=== PATIENT | female | born 1950 | race Caucasian/White ===

== ENCOUNTER → 2017-11-02 07:59 | Outpatient (CLI) | payer OTHER, SELFPAY ==
--- NOTE | 2017-11-02 08:02 | BI_ITS ---
MAMMOGRAPHY - BILATERAL SCREENING REASON FOR EXAM: Female, 67 years old. Routine annual screening examination. PERTINENT HISTORY: Mother with breast cancer. TECHNIQUE: Digital bilateral breast enrique (3D mammographic acquisition) in the CC and MLO projections. 2-D mediolateral oblique (MLO) and craniocaudad (CC) views of both breasts were obtained. CAD: Full Field Digital Mammography with Computer Added Detection was performed. COMPARISON: Comparison is made with prior study of October 18, 2016 and October 23, 2015. FINDINGS: Breast Composition: There are scattered areas of fibroglandular density. There are no dominant masses or suspicious calcifications. No other significant abnormalities are identified. There has been no significant change since the prior study. BI/SCREENING MAMM (CAD), BILAT IMPRESSION: Stable bilateral screening mammogram. Yearly follow-up mammogram recommended. (A) ASSESSMENT CATEGORY: BIRADS Category 1: Negative. A letter regarding these results will be sent to the patient by the facility within 30 days. Approximately 10% of breast cancers are not detected by mammography. A normal mammogram should not delay biopsy of a clinically suspicious abnormality. [id number] Electronically Signed: Juvencio Childs MD at 9:13 EDT Tel [phone], Service support ,
== END ==
PROVIDERS: Family Provider Family Medicine; PCP Family Medicine; Visit Provider Obstetrics & Gynecology
DX: Z12.31 Encounter for screening mammogram for malignant neoplasm of breast (principal)
CPT/HCPCS: 77063; 77067

== ENCOUNTER → 2018-04-11 12:20 | Outpatient (CLI) | payer OTHER, SELFPAY ==
--- NOTE | 2018-04-11 12:23 | RAD_ITS ---
STUDY: X-RAY CHEST REASON FOR EXAM: Female, 67 years old. 2 week history of cough. TECHNIQUE: PA and lateral views of the chest. COMPARISON: None. FINDINGS: Focal infiltrate in the anterior segment of the left lower lobe. Follow-up is recommended. Scattered calcified granulomas. There is no demonstrated pleural abnormality. Normal size heart. Normal mediastinum and raina. Normal visualized pulmonary arteries. Normal visualized aortic arch and descending thoracic aorta. There is demineralization of the osseous structures. Normal visualized ribs, clavicles, and shoulders. There is no demonstrated abnormality of the visualized soft tissue structures of the upper abdomen. RAD/Chest PA and Lateral IMPRESSION: Focal infiltrate is seen in the anterior segment of the left lower lobe. Electronically Signed: Juvencio Childs MD at 12:37 EDT Tel [phone], Service support ,
== END ==
PROVIDERS: Visit Provider Physician Assistant Surgical
DX: R09.89 Other specified symptoms and signs involving the circulatory and respiratory systems (principal)
CPT/HCPCS: 71046

== ENCOUNTER → 2018-06-14 07:46 | Outpatient (CLI) | payer OTHER, SELFPAY ==
[2018-06-14 09:40] LABS: Absolute Lymphocyte Count 1.75 X10^3/ul (0.83-4.51); Absolute Neutrophil Count 4.5 X10^3/uL (2.0-7.7); Basophil# 0.02 X10^3/uL; Basophil% 0.3 % (0-1); Eosinophil# 0.18 X10^3/uL; Eosinophils% 2.6 % (0-5); Hemoglobin 14.1 g/dl (12.0-15.0); Lymphocyte # 1.75 X10^3/ul (4.0); Lymphocyte % 25.2 % (19-41); Mean Corp Hgb Conc 32.8 g/gl (32-36); Mean Corpuscular Hgb 29.7 pg (27.0-32.0); Mean Corpuscular Volume 90.7 fL (81-99); Mean Platelet Vol. 8.5 fl (6.2-12.0); Monocyte# 0.51 X10^3/uL; Monocyte% 7.3 % (0-10); Neutrophil # 4.47 X10^3/uL (2.7-7.7); Neutrophil % 64.5 % (47-70); Platelet Count 362 K/mm3 (150-450); RBC Distribution Width CV 14.6 % (11.6-14.6); RBC Distribution Width SD 47.9 fl (35.1-43.9); Red Blood Count 4.74 M/mm3 (4.2-5.4); White Blood Count 6.9 K/mm3 (4.4-11.0)
[2018-06-14 09:43] LABS: POSITIVE COUNT NO; POSITIVE DIFFERENTIAL NO; POSITIVE MORPHOLOGY NO
[2018-06-14 10:22] LABS: ALB/GLOB Ratio 0.9 RATIO (0.9-2.4); AST(SGOT) 15 U/L (15-37); Alanine Aminotransfer ALT/SGPT 19 U/L (13-56); Albumin, Serum 3.5 g/dL (3.2-5.0); Alkaline Phosphatase 85 U/L (45-117); Anion Gap 8 (5-15); BUN 17 mg/dL (7-18); BUN/Creat Ratio 20.1 RATIO (10-20); Chloride 104 mmol/L (98-107); Cholesterol 242 mg/dL (200); Creatinine, Serum 0.84 mg/dL (0.55-1.02); EST Glomerular Filtration Rate 72 mL/min (>60); Est Glom Filt Rate - Afr Amer 87 mL/min (>60); Globulin 4.1 g/dL (2.2-4.2); Glucose 84 mg/dL (74-106); High Density Lipoprotein 57 mg/dL; Potassium 4.1 mmol/L (3.5-5.1); Protein, Total 7.6 g/dL (6.4-8.2); Sodium Level 141 mmol/L (136-145); Triglycerides 124 mg/dL; Very Low Density Lipoprotein 25 mg/dL (5-40)
== END ==
PROVIDERS: Family Provider Internal Medicine; PCP Internal Medicine; Referring Provider Internal Medicine; Visit Provider Internal Medicine
DX: Z00.00 Encounter for general adult medical examination without abnormal findings (principal)
CPT/HCPCS: 36415; 80053; 80061; 85025

== ENCOUNTER → 2018-11-16 07:38 | Outpatient (CLI) | payer OTHER, SELFPAY ==
[2018-06-30 08:04] VITALS: BMI 23.7
--- NOTE | 2018-11-16 07:41 | BI_ITS ---
MAMMOGRAPHY - BILATERAL SCREENING REASON FOR EXAM: Female, 68 years old. Routine annual screening examination. PERTINENT HISTORY: Mother with breast cancer. TECHNIQUE: Digital bilateral breast enrique (3D mammographic acquisition) in the CC and MLO projections. 2-D mediolateral oblique (MLO) and craniocaudad (CC) views of both breasts were obtained. CAD: Full Field Digital Mammography with Computer Added Detection was performed. COMPARISON: Comparison is made with prior study dated November 02, 2017 and October 26, 2016. FINDINGS: Breast Composition: There are scattered areas of fibroglandular density. There are no dominant masses or suspicious calcifications. No other significant abnormalities are identified. There has been no significant change since the prior study. BI/SCREENING MAMM (CAD), BILAT IMPRESSION: Stable bilateral screening mammogram. Yearly follow-up mammogram recommended. (A) ASSESSMENT CATEGORY: BIRADS Category 1: Negative. A letter regarding these results will be sent to the patient by the facility within 30 days. Approximately 10% of breast cancers are not detected by mammography. A normal mammogram should not delay biopsy of a clinically suspicious abnormality. [id number] Electronically Signed: Juvencio Childs, at 9:13 EDT , Service support ,
== END ==
PROVIDERS: Family Provider Internal Medicine; PCP Internal Medicine; Referring Provider Obstetrics & Gynecology; Visit Provider Obstetrics & Gynecology
DX: Z12.31 Encounter for screening mammogram for malignant neoplasm of breast (principal)
CPT/HCPCS: 77063; 77067

== ENCOUNTER → 2019-07-20 14:08 | Outpatient (CLI) | payer OTHER, SELFPAY ==
[2019-07-20 08:35] VITALS: BMI 23.7
[2019-07-20 14:21] LABS: Mucous, Urine 0 SEEN /hpf (<or=2+)
[2019-07-20 14:51] LABS: Color, Urine Yellow (Yellow); Glucose, Dipstick Normal (Normal); Ketone-Dipstick Negative (Negative); Leukocyte Esterase-Dipstick 500 /ul (Negative); Nitrite-Dipstick Negative (Negative); Occult Blood-Urine 250 /ul (Negative); Protein-Dipstick 100 mg/dl (Negative); Urine Bilirubin Dipstick Negative (Negative); Urine Clarity Cloudy (Clear); Urine Urobilinogen Normal (Normal)
[2019-07-20 15:03] LABS: Red Blood Cells-Urine > 100 SEEN /hpf (0-5); White Blood Cells >100 SEEN /hpf (0-5)
[2019-07-20 15:04] LABS: Bacteria 1+ /hpf (None Seen); Squamous Epithelial Cells - UA 5-10 SEEN /hpf (5-10)
== END ==
PROVIDERS: Family Provider Internal Medicine; PCP Internal Medicine; Referring Provider Physician Assistant Surgical; Visit Provider Physician Assistant Surgical
DX: R30.0 Dysuria (principal)
CPT/HCPCS: 81001; 87086; 87088; 87186

== ENCOUNTER → 2020-01-01 07:39 | Outpatient (CLI) | payer OTHER, SELFPAY ==
[2019-09-10 14:46] VITALS: BMI 23.7
--- NOTE | 2020-01-01 07:41 | BI_ITS ---
MAMMOGRAPHY - BILATERAL SCREENING REASON FOR EXAM: Female, 69 years old. Routine annual screening examination. PERTINENT HISTORY: Mother with breast cancer. TECHNIQUE: Digital bilateral breast joon (3D mammographic acquisition) in the CC and MLO projections. 2-D mediolateral oblique (MLO) and craniocaudad (CC) views of both breasts were obtained. CAD: Full Field Digital Mammography with Computer Added Detection was performed. COMPARISON: Comparison is made with prior examination dated November 16, 2018 and November 02, 2017. FINDINGS: Breast Composition: The breasts are almost entirely fatty. There are no dominant masses or suspicious calcifications. No other significant abnormalities are identified. There has been no significant change since the prior study. BI/SCREEN MAMM (CAD) W/JOON BILAT IMPRESSION: Stable bilateral screening mammogram. Yearly follow-up mammogram recommended. (A) ASSESSMENT CATEGORY: BIRADS Category 1: Negative. A letter regarding these results will be sent to the patient by the facility within 30 days. Approximately 10% of breast cancers are not detected by mammography. A normal mammogram should not delay biopsy of a clinically suspicious abnormality. [id number] Electronically Signed: Juvencio Childs, at 12:10 EDT , Service support ,
== END ==
PROVIDERS: PCP Internal Medicine; Referring Provider Obstetrics & Gynecology; Visit Provider Obstetrics & Gynecology
DX: Z12.31 Encounter for screening mammogram for malignant neoplasm of breast (principal); Z80.3 Family history of malignant neoplasm of breast
CPT/HCPCS: 77063; 77067

== ENCOUNTER → 2020-05-21 14:28 | Outpatient (CLI) | payer OTHER, SELFPAY ==
[2019-09-10 14:46] VITALS: BMI 23.7
--- NOTE | 2020-05-21 14:31 | CT_ITS ---
STUDY: CT RIGHT HIP REASON FOR EXAM: Female, 69 years old. OSTEOARTHRITIS RIGHT HIP-RUTHIE PROTOCOL RADIATION DOSAGE (If Supplied By Facility): CTDIvol = ( 13.52 ) mGy, DLP = ( 805.55 ) mGycm TECHNIQUE: Transaxial imaging of the pelvis and right hip with localizer images at the knee utilizing joint replacement protocol. Individualized dose optimization techniques were used for this CT. COMPARISON: None. FINDINGS: RIGHT HIP There is severe loss of the articular joint space of the right hip joint, with full thickness loss of the hyaline cartilage. There is lateral osteoarthritic spurring of the acetabular rim with a cortical erosion of the weight bearing articular surface of the right acetabulum. There is spurring of the right femoral head. Normal right femoral neck and intertrochanteric region. LEFT HIP There is mild articular narrowing of the left hip joint, with less than 50% loss of the hyaline cartilage. Normal left acetabulum. Normal left femoral neck and intertrochanteric region. OSSEOUS PELVIS Degenerative changes of visualized lower lumbar spine. Normal bilateral superior and inferior pubic rami. Normal pubic symphysis. Normal bilateral ischial tuberosity. There is mild sacroiliac spurring. Normal visualized soft tissue structures of the pelvis. Normal uterus. There is 1.9 cm left adnexal cyst. CT/Extremity Lower without Contra IMPRESSION: Degenerative change. Electronically Signed: Jose Alberto Mukherjee MD at 23:21 EDT , Service support ,
== END ==
PROVIDERS: PCP Internal Medicine; Referring Provider Specialist; Visit Provider Specialist
DX: M16.11 Unilateral primary osteoarthritis, right hip (principal)
CPT/HCPCS: 73700

== ENCOUNTER 2020-06-11 07:15 | Observation (INO) | payer OTHER, SELFPAY ==
[2019-09-10 14:46] VITALS: BMI 23.7
[2020-05-23 13:32] VITALS: BMI 24.0
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
[2020-06-04 11:19] LABS: Absolute Lymphocyte Count 1.88 X10^3/uL (0.83-4.51); Absolute Neutrophil Count 4.7 X10^3/uL (2.0-7.7); Basophil# 0.02 X10^3/uL; Basophil% 0.3 % (0-1); Eosinophil# 0.11 X10^3/uL; Eosinophils% 1.5 % (0-5); Hematocrit 45.7 % (37-47); Hemoglobin 14.6 g/dL (12.0-15.0); Lymphocyte # 1.88 X10^3/ul (4.0); Lymphocyte % 25.6 % (19-41); Mean Corp Hgb Conc 31.9 g/dL (32-36); Mean Corpuscular Hgb 29.6 pg (27.0-32.0); Mean Corpuscular Volume 92.5 fL (81-99); Mean Platelet Vol. 8.8 fl (6.2-12.0); Monocyte# 0.66 X10^3/uL; NRBC Flagged by Analyzer 0 % (0-5); Neutrophil # 4.66 X10^3/uL (2.7-7.7); Neutrophil % 63.3 % (47-70); Platelet Count 311 K/mm3 (150-450); RBC Distribution Width CV 13.8 % (11.6-14.6); RBC Distribution Width SD 47.1 fl (35.1-43.9); Red Blood Count 4.94 M/mm3 (4.2-5.4); White Blood Count 7.4 K/mm3 (4.4-11.0)
[2020-06-04 11:48] LABS: Anion Gap 5 (5-15); BUN 18 mg/dL (7-18); BUN/Creat Ratio 21.3 RATIO (10-20); Calcium,Total 9.1 mg/dL (8.5-10.1); Chloride 105 mmol/L (98-107); Creatinine, Serum 0.85 mg/dL (0.55-1.02); EST Glomerular Filtration Rate 71 mL/min (>60); Est Glom Filt Rate - Afr Amer 86 mL/min (>60); Glucose 79 mg/dL (74-106); Potassium 4.2 mmol/L (3.5-5.1); Sodium Level 138 mmol/L (136-145)
[2020-06-04 11:58] LABS: Magnesium 2.2 mg/dL (1.6-2.6)
[2020-06-11] VITALS (12 sets, daily range): BP systolic 95–117; BP diastolic 38–82; PULSE 58–79; RESP 16–18; TEMP 36.1–37.2; O2SAT 94–100; BMI 24.0; BMI 23.8
[2020-06-11 07:00] LABS: Bedside Glucose 64 mg/dL (70-110)
[2020-06-11] MEDS: Acetaminophen 500 MG Tablet 1000 MG PO ×3 (07:12→20:49)
[2020-06-11] MEDS: Gabapentin 600 MG Tablet PO (07:12)
[2020-06-11] MEDS: Lactated Ringers 1,000 ML 100 ML IV (07:16)
[2020-06-11] MEDS: Scopolamine 1mg/72hr Patch 1 PATCH TRANSDERM. (07:16)
[2020-06-11] MEDS: Cefazolin 2 GM in 0.9% Normal Saline 100 ML IV (07:52)
[2020-06-11] MEDS: dexAMETHasone 10 MG/ML Vial IV (08:21)
--- NOTE | 2020-06-11 09:09 | RAD_ITS ---
STUDY: X-RAY - PELVIS AND RIGHT HIP REASON FOR EXAM: Female, 69 years old. Anterior hip in OR TECHNIQUE: 1 views of the pelvis and hip. COMPARISON: None. FINDINGS: Intraoperative imaging provided for right total hip replacement. RAD/Hip 1 view with Pelvis IMPRESSION: Intraoperative imaging provided for right total hip replacement. Electronically Signed: Juvencio Childs, at 13:59 EST , Service support ,
--- NOTE | 2020-06-11 10:00 | OP.PCM_ITS ---
Report of Operation Date of Procedure: 06/11/20 Pre-Operative Diagnosis: Right hip primary osteoarthritis Post-Operative Diagnosis: Right hip primary osteoarthritis Surgery/Procedure Performed:: Minimally invasive robotic assisted direct anterior shoulder replacement Description of Surgical Findings:: Stable hip with equal leg lengths senior web developer: Jackie Cates Type of Anesthesia:: Spinal Anesthesiologist: Rashard Carrion Special Medications: 2 g Ancef, 1 g TXA at incision, 1 g TXA closure, 10 mg Decadron, joint cocktail (5 mg Duramorph, 30 mL of 0.5% Ropivicaine, 1000 units of epinephrine, 30 mg of Toradol) Specimen's removed: Bony cuts Estimated Blood Loss (mL): 250 Fluids Replaced: 1000 mL crystalloid Description of Procedure: Components used: 1. Accolade 2 Kirwin femoral stem size 3 127? 2. Lanre trident 2 acetabular shell size 50 mm, with 2 screws 3. Lanre X3 polyethylene MDM 4. Lanre Biolox delta 22.2mm, +3mm femoral head 5. MDM liner alpha code D Brief history operative indications: 69 yo f who failed conservative measures for their hip osteoarthritis. X-rays were consistent with osteoarthritis including joint space narrowing, osteophyte formation and subchondral cysts. Total hip replacement was discussed with the patient with risks and benefits including but not limited to blood loss, DVTs, PEs, neurovascular damage, dislocation, general risks of anesthesia including loss of life. Patient demonstrated an understanding medical clearance is obtained the patient was consented for surgery. Procedure: On the date of procedure the patient's R hip was marked in the preoperative area. Patient was then taken back to the operating room where anesthesia assumed control of the C-spine and airway and administered anesthetic. Patient was transferred to the operating table and placed in the supine position. The hips were placed at the break of the bed and a sacral bump was placed. The R lower extremity was then prepped out in a sterile fashion using chlorhexidine while the surgeon scrubbed. The PA was vital in the positioning of the patient. Upon reentering the room the R lower extremity was draped in the standard orthopedic fashion and the incision was marked. A timeout was called and akosua woo agreed upon the side, the site, the procedure be performed, antibody given, and patient's identity. 2 pins were placed in the contralateral iliac crest and the array was attached. At this time incision was made through skin, subcutaneous tissue, and fat down to fascia. The fascia was then incised and the TFL was retracted laterally. A retractor was placed on the lateral border of the femoral neck. Attention was directed to the inferior portion of the approach and all crossing vessels were identified and appropriately coagulated. A retractor was then placed on the medial portion of the femoral neck. The anterior capsule was then cleared of all soft tissue and then H shaped capsulotomy was made. The retractors were then placed inside the capsule. Checkpoint was placed in the femur and the femur was registered. The femoral neck was identified and a cleanup cut was made. At this time a power corkscrew was used to remove the femoral head. Attention was then turned toward the acetabulum where the soft tissues were appropriately retracted and the acetabulum was registered using the [email or web address] system. The acetabulum then was sequentially reamed to 50 mm. A 50 mm cup was then selected and impacted into place. Acetabular liner was impacted into place and locking mechanism was verified. The position of the acetabular cup was then verified under live fluoroscopy. Attention was then turned to the femur. Soft tissue releases on the medial and lateral femoral neck were appropriately done, the leg was externally rotated and lateralized. A Lala retractor was placed medially and proximally to the greater trochanter this allowed appropriate visualization and exposure of the femoral canal. Rongeour was then used to remove excess lateral bone. A canal finder and entry broach were used to open the proximal canal. Once we verified we were down the femoral canal we subsequently broached up to a size 3 femur. The appropriate neck was placed in the previously selected head was trialed with a 0 mm neck. Traction was pulled and the hip was reduced with internal rotation. Once it was appropriately reduced and stability was checked. There was minimal shuck, equal leg lengths and appropriate stability with hyperextension and external rotation as well as with 90? however patient had posterior instability with flexion and internal rotation. Fluoroscopy was then also used to verify the position of the components and leg lengths using the contralateral side for comparison. Leg lengths appear appropriate. At this time we felt we needed to switch to a MDM liner for greater stability. In removing the acetabular liner the shell was also removed. Based on the bone quality and the loose fit of the acetabular shell we elected to use a multihole shell. A multihole shell was open and impacted into place. Version was corrected 2 screws were placed. MDM liner was placed. We then trialed with the 127 degree neck a +3 head and the MDM. This gave us equal leg lengths with a stable hip in all directions. The trial components were then dislocated the proximal femur was again exposed and the components were removed from the wound. The final components were verified and opened. The wound was copiously irrigated out with normal saline. The acetabulum was checked for any residual debris. The final components were placed and impacted. Traction and internal rotation were again used to reduce the hip. After adequate reduction the hip remained stable with appropriate leg lengths. The final components were once again checked with live fluoroscopy and were found to be satisfactory. The wound was then copiously irrigated with normal saline once more, and hemostasis was obtained. Closure was then done using #1 Vicryl runner to close the fascia. A 2-0 vicryl interuppted sutures were used to close the subcutaneous skin. A 3-0 Monocryl and Steri-Strips were used for final skin closure. A Silverlon dressing was placed. Patient was awakened by anesthesia and transferred [facility]. Patient was then transferred to the PACU for recovery. Postoperative plan: Patient will get 24 hours postop antibiotics. Patient will get in-house phy sical therapy and will be weight-bear as tolerated. Patient will follow up in office in 2 weeks for a wound check and x-rays. 10 mg Xarelto daily for DVT prophylaxis due to previous VTE. - Complications No intraoperative complications - Admit VTE Documentation VTE Present on Admission: No VTE Mechan Device Prophylaxis: SCD's, Thigh High JASON Hose VTE Pharm Prophylaxis ordered?: Yes
[2020-06-11] MEDS: Lactated Ringers 1,000 ML 999 ML IV (10:38)
--- NOTE | 2020-06-11 10:50 | RAD_ITS ---
STUDY: X-RAY - PELVIS AND RIGHT HIP REASON FOR EXAM: Female, 69 years old. POST OP TECHNIQUE: 2 views of the pelvis and hip. COMPARISON: CT 05/21/2020 FINDINGS: There is a non-specific bowel gas pattern. Normal visualized soft tissue structures. Normal bilateral iliac wings, sacroiliac joints and visualized sacrum. Normal bilateral superior and inferior pubic rami. Normal pubic symphysis. Normal bilateral ischial tuberosities. Interval recent total hip arthroplasty with subcutaneous emphysema... RAD/Hip Min 2 Views (Portable) IMPRESSION: Interval recent right total hip arthroplasty. Electronically Signed: Elkin Baldwin MD at 11:12 EST Tel , Service support ,
[2020-06-11] MEDS: Lactated Ringers 1,000 ML 125 ML IV (11:31)
[2020-06-11] MEDS: oxyCODONE 5 MG Tablet PO (12:45)
[2020-06-11] MEDS: Senna/Docusate Sodium 1 Tablet 2 TABLET PO ×2 (12:46→20:49)
[2020-06-11] MEDS: Famotidine 20 MG Tablet PO (12:47)
[2020-06-11] MEDS: Ensure Surgery 237 ML LIQUID PO ×2 (12:49→17:11)
[2020-06-11] MEDS: Cefazolin 1 GM/50 ML BAG IV (17:12)
[2020-06-12] MEDS: Cefazolin 1 GM/50 ML BAG IV (00:46)
[2020-06-12 00:50] VITALS: BP 94/47; PULSE 66; RESP 18; TEMP 36.6; O2SAT 98
[2020-06-12] MEDS: oxyCODONE 5 MG Tablet PO (01:48)
[2020-06-12] MEDS: Acetaminophen 500 MG Tablet 1000 MG PO ×2 (05:00→13:01)
[2020-06-12] MEDS: Rivaroxaban 10 MG Tablet PO (05:00)
[2020-06-12 05:04] VITALS: BP 96/50; PULSE 68; RESP 16; TEMP 37.3; O2SAT 95
[2020-06-12 07:32] LABS: Hematocrit 31.8 % (37-47); Hemoglobin 10.3 g/dL (12.0-15.0); Mean Corp Hgb Conc 32.4 g/dL (32-36); Mean Corpuscular Hgb 29.9 pg (27.0-32.0); Mean Corpuscular Volume 92.2 fL (81-99); Platelet Count 211 K/mm3 (150-450); RBC Distribution Width CV 14.2 % (11.6-14.6); RBC Distribution Width SD 47.8 fl (35.1-43.9); Red Blood Count 3.45 M/mm3 (4.2-5.4)
[2020-06-12 07:54] LABS: Anion Gap 4 (5-15); BUN 17 mg/dL (7-18); BUN/Creat Ratio 21.5 RATIO (10-20); Calcium,Total 8.6 mg/dL (8.5-10.1); Chloride 109 mmol/L (98-107); Creatinine, Serum 0.79 mg/dL (0.55-1.02); EST Glomerular Filtration Rate 77 mL/min (>60); Est Glom Filt Rate - Afr Amer 93 mL/min (>60); Estimated Creatinine Clearance 47.14 ml/min; Glucose 110 mg/dL (74-106); Potassium 4.6 mmol/L (3.5-5.1); Sodium Level 142 mmol/L (136-145)
[2020-06-12 08:17] VITALS: BP 102/48; PULSE 66; RESP 16; TEMP 37; O2SAT 98
[2020-06-12] MEDS: Famotidine 20 MG Tablet PO (08:20)
[2020-06-12] MEDS: Senna/Docusate Sodium 1 Tablet 2 TABLET PO (08:21)
[2020-06-12] MEDS: Ensure Surgery 237 ML LIQUID PO ×2 (08:21→11:23)
[2020-06-12] MEDS: Calcium Carbonate 500 MG Tablet PO (08:21)
--- NOTE | 2020-06-12 10:01 | PN.ORTHO_ITS ---
Subjective: The patient was sitting in bedside chair upon examination. Patient denies any chest pain, shortness of breath, dizziness, lightheadedness, nausea or vomiting, or calf pain. Pain is controlled on medications. No adverse overnight events. Patient had some lower blood pressure readings overnight but she has tolerated therapy and has had no episodes of dizziness or lightheadedness. No underlying hypertension. Patient is doing very well and tolerated therapy well. She does wish to go home today. Objective: Vital signs stable and afebrile. Patient has had couple readings of low blood pressure. We will continue to monitor today Patient is able to plantarflex and dorsiflex actively. Sensation is intact to light touch to saphenous, sural, superficial and deep peroneal, and tibial distribution. Dressing is clean dry and intact. Negative Homans bilaterally, negative signs and symptoms of DVT. - Physical Exam Vitals/I&O's: Vital Signs Temp Pulse Resp BP Pulse Ox 98.6 F 66 16 102/48 L 98 06/12/20 08:17 06/12/20 08:17 06/12/20 08:17 06/12/20 08:17 06/12/20 08:17 Oxygen Flow Rate (L/min) 5 Oxygen Delivery Method Room Air Weight: 63.049 kg Body Mass Index (BMI) 23.8 Intake and Output for Last 24 Hours 06/10/20 06/11/20 06/12/20 23:59 23:59 23:59 Intake Total 4484.00 / 4484.00 50 / 50 Balance 4484.00 / 4484.00 50 / 50 General: Alert, Oriented x3, Cooperative, No apparent distress Microbiology Past 72 Hours 06/10/20 12:00 Interface Orders SARS-CoV-2 Antigen (Rapid) - Final 06/04/20 10:24 Swab (Method) Nasal Screen MRSA/MSSA - Final Laboratory Results 06/12/20 07:00: WBC 17.0 H, RBC 3.45 L, Hgb 10.3 L, Hct 31.8 L, MCV 92.2, MCH 29.9, MCHC 32.4, RDW Std Deviation 47.8 H, RDW Coeff of Osmar 14.2, Plt Count 211, MPV 9.0 06/12/20 07:01: Sodium 142, Potassium 4.6, Chloride 109 H, Carbon Dioxide 29.0, Anion Gap 4 L, BUN 17, Creatinine 0.79, Estim Creat Clear Calc 47.14, Est GFR (MDRD) Af Amer 93, Est GFR (MDRD) Non-Af 77, BUN/Creatinine Ratio 21.5 H, Glucose 110 H, Calcium 8.6 Current Medications Acetaminophen (Acetaminophen 500 Mg Tablet) 1,000 mg PO Q8 [facility] Last Admin: 06/12/20 05:00 Dose: 1,000 mg Documented by: Calcium Carbonate (Calcium Carbonate 500 Mg Tablet) [facility] Admin: 06/12/20 08:21 Dose: 500 mg Documented by: Cholecalciferol (Cholecalciferol (Vit D3) 1,000 Unit (25mcg)) [facility] Admin: 06/12/20 08:21 Dose: 1,000 unit Documented by: Enteral Nutritional Formula (Ensure Surgery 237 Ml Liquid) 237 ml PO TIDCM [facility] Last Admin: 06/12/20 08:21 Dose: 237 ml Documented by: Famotidine (Famotidine 20 Mg Tablet) 20 mg PO DAILY [facility] Last Admin: 06/12/20 08:20 Dose: 20 mg Documented by: Ketorolac Tromethamine (Ketorolac 15 Mg/Ml Vial) 15 mg IV Q6H PRN PRN PRN Reason: Pain Score 1-5 Stop: 06/13/20 07:18 Meloxicam (Meloxicam 7.5 Mg Tablet) 7.5 mg PO BID [facility] Morphine Sulfate (Morphine 2 Mg/Ml Syringe) 2 - 4 mg IV Q2H PRN PRN PRN Reason: Pain Score 4-10 Morphine Sulfate (Morphine 4 Mg/Ml Syringe) 2 - 4 mg IV Q2H PRN PRN PRN Reason: Pain Score 4-10 Ondansetron HCl (Ondansetron 4 Mg/2 Ml Vial) 4 mg IV Q8H PRN PRN PRN Reason: NAUSEA Oxycodone HCl (Oxycodone 5 Mg Tablet) 5 - 10 mg PO Q4H PRN PRN PRN Reason: Pain Score 4-10 Last Admin: 06/12/20 01:48 Dose: 5 mg Documented by: Promethazine HCl (Promethazine 25 Mg/Ml Syringe) 12.5 mg IM Q6H PRN PRN; Protocol PRN Reason: NAUSEA/VOMITING Rivaroxaban (Rivaroxaban 10 Mg Tablet) 10 mg PO DAILY@0600 [facility] Last Admin: 06/12/20 05:00 Dose: 10 mg Documented by: Senna/Docusate Sodium (Senna/Docusate Sodium 1 Tablet) 2 tablet PO BID [facility] Last Admin: 06/12/20 08:21 Dose: 2 tablet Documented by: Sodium Chloride (0.9% Nacl Peripheral Flush Adult/Peds) 5 - 15 ml IV UD PRN PRN Reason: SALINE FLUSH Medical Necessity - Tobacco Use Smoking Status: Never smoker Tobacco Use: Non-smoker Assessment/Plan All Active Problems (Last Reviewed 05/23/20 @ 13:30 by Zoe Rodriguez) Cystitis (Acute) Pneumonia (Resolved) Cataracts, bilateral (Acute) Chronic UTI (Resolved) Pneumonia (Acute) History Child Births (Acute) Arthritis (Acute) Chest congestion (Acute) 1. S/P right direct anterior total hip arthroplasty POD #1 2. Continue Pain Medications: Tylenol and oxycodone 3. 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 At 2-week follow-up visit we will switch her over to aspirin 81 mg twice daily 4. PT/OT: Weightbearing as tolerated 5. H & H: 10.3/31.8, asymptomatic. Postoperative anemia secondary to surgical blood loss with no intraoperative complications 6. Reactive leukocytosis: Currently 17.0, afebrile. Patient did receive Decadron intraoperatively 7. Encouraged Incentive Spirometry 8. Disposition: Orthopedically stable, plan will be for possible discharge home today as long as blood pressure has remained stable. Prescriptions will be E scribed to [facility]. Patient has outpatient physical therapy established. She will follow-up per postop instructions. I have reviewed the [place] Automated Rx Reporting System (OARRS) report for this patient for refill pattern and other prescriber involvement as part of the appropriate surveillance for the provision of acute and chronic controlled medications. The report was requested and reviewed on the date of this entry and was considered in the prescribing process.
--- NOTE | 2020-06-12 10:08 | DCINST_ITS ---
Discharge Diet: No Restrictions Discharge Activity: May Not Drive - while taking narcotic pain medications. May shower in (days): 1 - Dressing must be intact to skin. Turn dressing away from water Ice area for (Minutes): 20 - Every 1-2 hours while awake Weight Bearing Status: Weight bearing as tolerated Elevate: Operative Extremity Additional Activity Instructions:: Wear elastic stockings for 2 weeks. DO NOT use alcohol with narcotic pain medication. DO NOT make important decisions while taking narcotic medication. If you have problems with taking your medication (rash, itching, nausea, etc.) call the office at once. Call your doctor if your incision/area has: Increased Pain/ Swelling, Increased Redness, Foul Smelling Discharge Call your doctor if you observe: Fever of 101 or Higher Remove Dressing in (days):: 4 - Okay to remove dressing on June 16, 2020 Additional Instructions: Follow orthopedic postop instructions Allergies/Adverse Reactions: Allergies No Known Allergies Allergy (Unverified 06/11/20 06:42) Medications to take at Discharge cholecalciferol (vitamin D3) 25 mcg (1,000 unit) tablet 25 mcg PO DAILY 05/23/20 glucosamine HCl 500 mg tablet 500 mg PO BID 05/23/20 Calcium Carbonate [Calcium] 600 mg PO DAILY 05/28/20 cephalexin 500 mg capsule 500 mg PO BID #14 cap 06/02/20 Acetaminophen [Tylenol] 1,000 mg PO Q8 tablet 06/12/20 Oxycodone [Oxyir] 5 - 10 mg PO Q4H PRN PRN 4 Days #36 tablet 06/12/20 Rivaroxaban [Xarelto] 10 mg PO DAILY@0600 #13 tab 06/12/20 Senna/Docusate Sodium [Senokot-S] 2 tab PO BID #14 tab 06/12/20 The following prescriptions were given: Oxycodone [Oxyir] 5 - 10 mg PO Q4H PRN PRN 4 Days #36 tablet PRN Reason: Pain Score 4-10 Transmission Status: Sent to [facility] Senna/Docusate Sodium [Senokot-S] 2 tab PO BID #14 tab Transmission Status: Pending to [facility] Rivaroxaban [Xarelto] 10 mg PO DAILY@0600 #13 tab Transmission Status: Pending to [facility] Orders to be completed after discharge: 12 Lead EKG [[facility]] Time Frame: 06/04/20, Facility: [facility], Location: [facility] Primary Care Physician: Thi Rainey MD [Primary Care Provider] - Test Results: Test results from this visit will be discussed in further detail at your follow- up appointment, if applicable. Please Follow Up With: [facility] When: 06/16/20 @ 9:00 am with [facility] Please Follow Up With: Gina Denis NP, [employer] When: 06/25/20 @ 9:45 am
--- NOTE | 2020-06-12 11:40 | CASEMGMT ---
MARLEE KIM Face to Face with patient for initial transition planning/care coordination assessment. RN CM introduced self and role at [facility]. Patient lying in bed, alert and oriented. Patient willing to participate in assessment and is able to answer all questions appropriately. Care providers, pharmacy, and demographics verified. Patient wishes to discharge home and is setup with [facility] for outpatient therapy. Patient states she has no further needs or concerns at this time. CM to follow for discharge planning needs that may arise. PCP: [facility] Specialists: elida Vasques; Mireille, MELODIE Preferred Pharmacy: [facility] retail Insurance: [place] Prescription Benefit: yes Living Will/HPOA: yes, Abhijit Pineda LNOK: Living Arrangements: patient lives with in a single story home with 20 steps to go down to enter the home. Patient states she was independent at home prior to surgery. Transportation: DME/HHC: Patient states she has walker and raised toilet at home. Patient is scheduled for outpatient therapy starting Tuesday at [facility]. Disposition Plan: Patient to discharge home with outpatient therapy, family support, and follow-up plans in place. Lisa REYES, RN, CM
== END 2020-06-12 13:15 | disposition home or self-care (01) ==
LOC: SDC 09:06 → MS3 09:06
PROVIDERS: Anesthesiology; Admitting Provider Specialist; PCP Internal Medicine; Referring Provider Specialist; Visit Provider Specialist
PROC: 8E0Y0CZ Robotic Assisted Procedure of Lower Extremity, Open Approach (ICD-10-PCS; CPT 27130; principal; 2020-06-11 07:30)
DX: M16.11 Unilateral primary osteoarthritis, right hip (principal); Z20.828 Contact with and (suspected) exposure to other viral communicable diseases; Z86.718 Personal history of other venous thrombosis and embolism; Z86.711 Personal history of pulmonary embolism; D62 Acute posthemorrhagic anemia; Z79.899 Other long term (current) drug therapy
CPT/HCPCS: 01214; 27130; S2900; 36415; 73501; 73502; 76000; 80048; 82962; 83735; 85025; 85027; 87081; 87426; 93005; 96365; 96366; 97110; 97116; 97162; 97166; 97530; 97535; 99218; 99251; C1776; C9803; J7120; G0378; G0379; G0463; J2405

== ENCOUNTER → 2021-01-15 07:57 | Outpatient (CLI) | payer OTHER, SELFPAY ==
[2020-06-11 12:31] VITALS: BMI 23.8
--- NOTE | 2021-01-15 07:59 | BI_ITS ---
MAMMOGRAPHY - BILATERAL SCREENING REASON FOR EXAM: Female, 70 years old. Routine annual screening examination. PERTINENT HISTORY: Mother with breast cancer. TECHNIQUE: Digital bilateral breast joon (3D mammographic acquisition) in the CC and MLO projections. 2-D mediolateral oblique (MLO) and craniocaudad (CC) views of both breasts were obtained. CAD: Full Field Digital Mammography with Computer Added Detection was performed. COMPARISON: Comparison is made with prior study dated 01/01/2020 and 11/16/2018. FINDINGS: Breast Composition: The breasts are almost entirely fatty. There are no dominant masses or suspicious calcifications. No other significant abnormalities are identified. There has been no significant change since the prior study. BI/SCRN MAMM (CAD)W/JOON BILAT IMPRESSION: Stable bilateral screening mammogram. Yearly follow-up mammogram recommended. (A) ASSESSMENT CATEGORY: BIRADS Category 1: Negative. A letter regarding these results will be sent to the patient by the facility within 30 days. Approximately 10% of breast cancers are not detected by mammography. A normal mammogram should not delay biopsy of a clinically suspicious abnormality. [id number] Electronically Signed: Juvencio Childs MD at 8:45 EDT , Service support ,
== END ==
PROVIDERS: PCP Internal Medicine; Referring Provider Obstetrics & Gynecology; Visit Provider Obstetrics & Gynecology
DX: Z12.31 Encounter for screening mammogram for malignant neoplasm of breast (principal)
CPT/HCPCS: 77063; 77067

== ENCOUNTER → 2022-01-21 | Outpatient (CLI) | payer OTHER, MEDICARE, SELFPAY ==
--- NOTE | 2022-01-21 09:37 | BI_ITS ---
MAMMOGRAPHY - BILATERAL SCREENING REASON FOR EXAM: Female, 71 years old. Routine annual screening examination. PERTINENT HISTORY: Mother with breast cancer. TECHNIQUE: Digital bilateral breast joon (3D mammographic acquisition) in the CC and MLO projections. 2-D mediolateral oblique (MLO) and craniocaudad (CC) views of both breasts were obtained. CAD: Full Field Digital Mammography with Computer Added Detection was performed. COMPARISON: Comparison mammogram from 01/15/2021, 01/01/2020, 11/16/2018, 11/02/2017. FINDINGS: Breast Composition: The breasts are almost entirely fatty. There are no dominant masses or suspicious calcifications. No other significant abnormalities are identified. There has been no significant change since the prior study. BI/SCRN MAMM (CAD)W/JOON BILAT IMPRESSION: Stable bilateral screening mammogram. Yearly follow-up mammogram recommended. (A) ASSESSMENT CATEGORY: BIRADS Category 1: Negative. A letter regarding these results will be sent to the patient by the facility within 30 days. Approximately 10% of breast cancers are not detected by mammography. A normal mammogram should not delay biopsy of a clinically suspicious abnormality. [id number] Electronically Signed: Samuel Pabon, at 15:08 EDT ,
--- NOTE | 2022-01-21 10:00 | BD_ITS ---
EXAM: XR DEXA BONE DENSITY AXIAL CLINICAL INDICATION: [id number] TECHNIQUE: Dual energy x-ray absorptiometry performed. Bone mineral density measurements were obtained of the lumbar spine and (optionally) the proximal femurs. Values are compared with gender matched average of normal, and with age, weight and ethnic origin (Z-score) and with healthy young adults (T-score). This report was created using [employer] technology. COMPARISON: None. FINDINGS: LUMBAR SPINE BONE MINERAL DENSITY: In the lumbar spine the bone mineralization density measured 1.104 g/sq cm which gave a T score of 0.5. LUMBAR SPINE T-SCORE: See above. LEFT FEMORAL NECK BONE MINERAL DENSITY: The left femoral neck the bone mineralization density measured 0.688 g/sq cm which gave a T score of -1.4. UNITS OF MEASURE: Bone mineral density is measured in g/cm2. Z-score is the number of standard deviations above age-matched controls. T-score is the number of standard deviations above healthy young adults. WORLD HEALTH ORGANIZATION GUIDELINES: T-score at or above -1 is normal bone mineral density. T-score between -1 and -2.5 is osteopenia. T-score at or below -2.5 is osteoporosis. BD/Dexa Bone Density Study IMPRESSION: Bone mineralization density within normal limits in the lumbar spine and left femoral neck. Electronically Signed: Collins Brannon MD at 2:37 EDT ,
== END | disposition home or self-care (01) ==
PROVIDERS: PCP Internal Medicine; Referring Provider Obstetrics & Gynecology; Visit Provider Obstetrics & Gynecology
DX: Z12.31 Encounter for screening mammogram for malignant neoplasm of breast (principal); Z80.3 Family history of malignant neoplasm of breast; N95.9 Unspecified menopausal and perimenopausal disorder
CPT/HCPCS: 77063; 77067; 77080

== ENCOUNTER → 2022-11-01 | Outpatient (CLI) | payer MEDICARE, SELFPAY ==
[2022-11-01 16:22] LABS: Absolute Lymphocyte Count 2.15 X10^3/uL (0.83-4.51); Absolute Neutrophil Count 3.9 X10^3/uL (2.0-7.7); Basophil# 0.03 X10^3/uL; Basophil% 0.4 % (0-1); Eosinophil# 0.18 X10^3/uL; Eosinophils% 2.7 % (0-5); Hematocrit 43.2 % (37-47); Hemoglobin 14.1 g/dL (12.0-15.0); Lymphocyte # 2.15 X10^3/ul (0.83-4.51); Lymphocyte % 31.7 % (19-41); Mean Corp Hgb Conc 32.6 g/dL (32-36); Mean Corpuscular Hgb 29.9 pg (27.0-32.0); Mean Corpuscular Volume 91.5 fL (81-99); Mean Platelet Vol. 9.1 fl (6.2-12.0); Monocyte% 7.4 % (0-10); NRBC Flagged by Analyzer 0 % (0-5); Neutrophil % 57.5 % (47-70); Platelet Count 276 K/mm3 (150-450); RBC Distribution Width CV 14.4 % (11.6-14.6); RBC Distribution Width SD 48.8 fl (35.1-43.9); Red Blood Count 4.72 M/mm3 (4.2-5.4); White Blood Count 6.8 K/mm3 (4.4-11.0)
[2022-11-01 16:32] LABS: AST(SGOT) 19 U/L (15-37); Alanine Aminotransfer ALT/SGPT 22 U/L (13-56); Albumin, Serum 3.7 g/dL (3.2-5.0); Alkaline Phosphatase 79 U/L (45-117); Anion Gap 4 (5-15); BUN 15 mg/dL (7-18); BUN/Creat Ratio 17.5 RATIO (10-20); Calcium,Total 9.9 mg/dL (8.5-10.1); Chloride 107 mmol/L (98-107); Cholesterol 241 mg/dL (200); Creatinine, Serum 0.86 mg/dL (0.55-1.02); EST Glomerular Filtration Rate 69 mL/min (>60); Est Glom Filt Rate - Afr Amer 84 mL/min (>60); Globulin 3.8 g/dL (2.2-4.2); Glucose 94 mg/dL (74-106); High Density Lipoprotein 51 mg/dL; Potassium 4.3 mmol/L (3.5-5.1); Protein, Total 7.5 g/dL (6.4-8.2); Sodium Level 139 mmol/L (136-145); Triglycerides 206 mg/dL; Very Low Density Lipoprotein 41 mg/dL (5-40)
== END | disposition home or self-care (01) ==
LOC: BIMLAB 14:39
PROVIDERS: PCP Internal Medicine; Referring Provider Internal Medicine; Visit Provider Internal Medicine
DX: I10 Essential (primary) hypertension (principal); E78.5 Hyperlipidemia, unspecified
CPT/HCPCS: 36415; 80053; 80061; 85025

== ENCOUNTER → 2023-02-02 | Outpatient (CLI) | payer MEDICARE, SELFPAY ==
--- NOTE | 2023-02-02 09:07 | BI_ITS ---
MAMMOGRAPHY - BILATERAL SCREENING REASON FOR EXAM: Female, 72 years old. Routine annual screening examination. PERTINENT HISTORY: Mother with breast cancer. TECHNIQUE: Digital bilateral breast joon (3D mammographic acquisition) in the CC and MLO projections. 2-D mediolateral oblique (MLO) and craniocaudad (CC) views of both breasts were obtained. CAD: Full Field Digital Mammography with Computer Added Detection was performed. COMPARISON: Comparison is made with prior study dated January 21, 2022 and January 15, 2021. FINDINGS: Breast Composition: The breasts are almost entirely fatty. There are no dominant masses or suspicious calcifications. No other significant abnormalities are identified. There has been no significant change since the prior study. BI/SCRN MAMM (CAD)W/JOON BILAT IMPRESSION: Stable bilateral screening mammogram. Yearly follow-up mammogram recommended. (A) ASSESSMENT CATEGORY: BIRADS Category 1: Negative. A letter regarding these results will be sent to the patient by the facility within 30 days. Approximately 10% of breast cancers are not detected by mammography. A normal mammogram should not delay biopsy of a clinically suspicious abnormality. [id number] Electronically Signed: Juvencio Childs MD at 9:59 EDT ,
== END | disposition home or self-care (01) ==
LOC: OPBI 09:06
PROVIDERS: PCP Internal Medicine; Referring Provider Internal Medicine; Visit Provider Internal Medicine
DX: Z12.31 Encounter for screening mammogram for malignant neoplasm of breast (principal)
CPT/HCPCS: 77063; 77067

== ENCOUNTER → 2023-12-01 | Outpatient (CLI) | payer MEDICARE, SELFPAY ==
[2023-12-01 07:05] LABS: Absolute Lymphocyte Count 2.07 X10^3/uL (0.83-4.51); Absolute Neutrophil Count 3.4 X10^3/uL (2.0-7.7); Basophil# 0.04 X10^3/uL; Basophil% 0.6 % (0-1); Eosinophil# 0.21 X10^3/uL; Eosinophils% 3.4 % (0-5); Hematocrit 44.9 % (37-47); Hemoglobin 14.2 g/dL (12.0-15.0); Lymphocyte # 2.07 X10^3/ul (0.83-4.51); Lymphocyte % 33.1 % (19-41); Mean Corp Hgb Conc 31.6 g/dL (32-36); Mean Corpuscular Hgb 28.8 pg (27.0-32.0); Mean Corpuscular Volume 91.1 fL (81-99); Mean Platelet Vol. 8.4 fl (6.2-12.0); Monocyte# 0.53 X10^3/uL; Monocyte% 8.5 % (0-10); NRBC Flagged by Analyzer 0 % (0-5); Neutrophil # 3.38 X10^3/uL (2.7-7.7); Neutrophil % 54.1 % (47-70); Platelet Count 270 K/mm3 (150-450); RBC Distribution Width CV 14.6 % (11.6-14.6); Red Blood Count 4.93 M/mm3 (4.2-5.4); White Blood Count 6.3 K/mm3 (4.4-11.0)
[2023-12-01 07:15] LABS: Anisocytosis 2+; Platelet Estimate MOD DEC (ADEQ)
[2023-12-01 07:26] LABS: AST(SGOT) 19 U/L (15-37); Alanine Aminotransfer ALT/SGPT 20 U/L (13-56); Albumin, Serum 3.6 g/dL (3.2-5.0); Alkaline Phosphatase 68 U/L (45-117); Anion Gap 5 (5-15); BUN 12 mg/dL (7-18); BUN/Creat Ratio 12.9 RATIO (10-20); Calcium,Total 9.2 mg/dL (8.5-10.1); Chloride 107 mmol/L (98-107); Cholesterol 234 mg/dL (200); Creatinine, Serum 0.93 mg/dL (0.55-1.02); EST Glomerular Filtration Rate 63 mL/min (>60); Est Glom Filt Rate - Afr Amer 76 mL/min (>60); Globulin 3.6 g/dL (2.2-4.2); Glucose 103 mg/dL (74-106); High Density Lipoprotein 63 mg/dL; Potassium 4.3 mmol/L (3.5-5.1); Protein, Total 7.2 g/dL (6.4-8.2); Sodium Level 141 mmol/L (136-145); Triglycerides 112 mg/dL; Very Low Density Lipoprotein 22 mg/dL (5-40)
== END | disposition home or self-care (01) ==
PROVIDERS: PCP Internal Medicine; Referring Provider Internal Medicine; Visit Provider Internal Medicine
DX: I10 Essential (primary) hypertension (principal); E78.5 Hyperlipidemia, unspecified
CPT/HCPCS: 36415; 80053; 80061; 85025

== ENCOUNTER → 2024-02-07 | Outpatient (CLI) | payer MEDICARE, SELFPAY ==
--- NOTE | 2024-02-07 09:27 | BI_ITS ---
MAMMOGRAPHY - BILATERAL SCREENING REASON FOR EXAM: Female, 73 years old. Routine annual screening examination. PERTINENT HISTORY: Mother with breast cancer. TECHNIQUE: Digital bilateral breast joon (3D mammographic acquisition) in the CC and MLO projections. 2-D mediolateral oblique (MLO) and craniocaudad (CC) views of both breasts were obtained. CAD: Full Field Digital Mammography with Computer Added Detection was performed. COMPARISON: Comparison is made with prior study dated February 02, 2023 and January 21, 2022. FINDINGS: Breast Composition: The breasts are almost entirely fatty. There are no dominant masses or suspicious calcifications. No other significant abnormalities are identified. There has been no significant change since the prior study. BI/SCRN MAMM (CAD)W/JOON BILAT IMPRESSION: Stable bilateral screening mammogram. Yearly follow-up mammogram recommended. (A) ASSESSMENT CATEGORY: BIRADS Category 1: Negative. A letter regarding these results will be sent to the patient by the facility within 30 days. Approximately 10% of breast cancers are not detected by mammography. A normal mammogram should not delay biopsy of a clinically suspicious abnormality. [id number] Electronically Signed: Juvencio Childs MD at 10:46 EDT ,
--- NOTE | 2024-02-07 09:28 | BD_ITS ---
STUDY: DUAL ENERGY X-RAY ABSORPTIOMETRY / DXA REASON FOR EXAM: Female, 73 years old. Post menopausal TECHNIQUE: Bone Mineral Density (BMD) measurements of lumbar spine and left hip were obtained. COMPARISON: Comparison is made with prior study dated January 21, 2022. FINDINGS: Lumbar Spine (L1-L4): g/cm2 (1.105) / T-score (0.5) / Z-score (2.7) Findings are suggestive of normal bone density with a fracture risk. Left Femur Total: g/cm2 (0.905) / T-score (-0.3) / Z-score (1.3) Left Femoral Neck: g/cm2 (0.674) / T-score (-1.6) / Z-score (0.3) The T-Scores on the most recent prior examination were: Lumbar Spine (L1-L4): There has been improvement of bone density since the previous examination. Left Femur Total: which represents a worsening of 1.3%. BD/Dexa Bone Density Study IMPRESSION: The patient is considered osteopenic as outlined below according to World Jorge Alberto Organization (WHO) criteria with a moderate fracture risk. There has been worsening of bone density since the previous examination. Reference Information: The T-score is the number of standard deviations above or below the standard which is normal for young adults at their peak bone mineral density. The World Health Organization (WHO) interprets the T-scores as follows: Above -1 Normal bone density Between -1 and -2.5 Osteopenia Equal to / or below -2.5 Osteoporosis As a practical clinical guideline, osteopenia may be graded as follows: Mild -1 through -1.5 Moderate -1.6 through -2.0 Severe -2.1 through -2.4 The Z-score is the number of standard deviations above or below age-matched controls. A Z-score of less than -1.5 would be considered abnormal. References: 1. NIH Osteoporosis and Related Bone Diseases www osteo.org 2. International Society for Clinical Densitometry www iscd.org 3. National Osteoporosis Foundation www nof.org Electronically Signed: Juvencio Childs MD at 13:51 EDT ,
== END | disposition home or self-care (01) ==
LOC: OPBD 09:27
PROVIDERS: PCP Internal Medicine; Referring Provider Internal Medicine; Visit Provider Internal Medicine
DX: Z12.31 Encounter for screening mammogram for malignant neoplasm of breast (principal); Z78.0 Asymptomatic menopausal state; Z80.3 Family history of malignant neoplasm of breast
CPT/HCPCS: 77063; 77067; 77080

== ENCOUNTER → 2024-11-19 | Outpatient (CLI) | payer MEDICARE, SELFPAY ==
[2024-11-19 15:23] LABS: Absolute Lymphocyte Count 2.12 X10^3/uL (0.83-4.51); Absolute Neutrophil Count 4.4 X10^3/uL (2.0-7.7); Basophil# 0.04 X10^3/uL; Basophil% 0.5 % (0-1); Eosinophil# 0.18 X10^3/uL; Eosinophils% 2.5 % (0-5); Hematocrit 40.9 % (37-47); Hemoglobin 13.7 g/dL (12.0-15.0); Lymphocyte # 2.12 X10^3/ul (0.83-4.51); Mean Corp Hgb Conc 33.5 g/dL (32-36); Mean Corpuscular Hgb 29.6 pg (27.0-32.0); Mean Corpuscular Volume 88.3 fL (81-99); Mean Platelet Vol. 9.1 fl (6.2-12.0); Monocyte# 0.55 X10^3/uL; Monocyte% 7.5 % (0-10); NRBC Flagged by Analyzer 0 % (0-5); Neutrophil # 4.38 X10^3/uL (2.7-7.7); Neutrophil % 60.1 % (47-70); Platelet Count 302 K/mm3 (150-450); RBC Distribution Width CV 15.4 % (11.6-14.6); RBC Distribution Width SD 49.5 fl (35.1-43.9); Red Blood Count 4.63 M/mm3 (4.2-5.4); White Blood Count 7.3 K/mm3 (4.4-11.0)
[2024-11-19 16:04] LABS: ALB/GLOB Ratio 1.5 RATIO (0.9-2.4); AST(SGOT) 22 U/L (<=31); Alanine Aminotransfer ALT/SGPT 13 U/L (<=34); Albumin, Serum 4.2 g/dL (3.4-4.8); Alkaline Phosphatase 90 U/L (35-104); Anion Gap 11 (5-15); BUN 15 mg/dL (4-19); BUN/Creat Ratio 19.3 RATIO (10-20); Calcium,Total 9.4 mg/dL (7.6-11.0); Carbon Dioxide 24.5 mmol/L (21.0-32.0); Chloride 105 mmol/L (98-108); Cholesterol 243 mg/dL (<=200); Creatinine, Serum 0.77 mg/dL (0.70-1.20); EST Glomerular Filtration Rate 82 (>60); Globulin 2.8 g/dL (2.2-4.2); Glucose 108 mg/dL (70-99); High Density Lipoprotein 55 mg/dL; Low Density Lipoprotein Calc. 140 mg/dL; Potassium 4.1 mmol/L (3.3-5.1); Sodium Level 140 mmol/L (133-145); Total Bilirubin 0.16 mg/dL (0.00-1.30); Triglycerides 241 mg/dL; Very Low Density Lipoprotein 48 mg/dL (5-40); Vitamin D,25 Hydroxy 44.8 ng/mL (30-100); cholesterol:hdl ratio screen 4.42
== END | disposition home or self-care (01) ==
LOC: BIMLAB 13:33
PROVIDERS: PCP Internal Medicine; Referring Provider Internal Medicine; Visit Provider Internal Medicine
DX: E78.5 Hyperlipidemia, unspecified (principal); M85.80 Other specified disorders of bone density and structure, unspecified site
CPT/HCPCS: 36415; 80053; 80061; 82306; 85025

== ENCOUNTER → 2025-02-07 | Outpatient (CLI) | payer MEDICARE, SELFPAY ==
--- NOTE | 2025-02-07 08:45 | BI_ITS ---
EXAM: SCRN MAMM (CAD)W/JOON BILAT DATE: 02/07/2025 CLINICAL HISTORY: F, Age 74 y/o , BREAST CANCER SCREENING History of mother with breast cancer. TECHNIQUE: SCRN MAMM (CAD)W/JOON BILAT COMPARISON: Prior exam(s) dated February 07, 2024.. FINDINGS: TISSUE DENSITY: The breasts are almost entirely fatty. Bilateral Breast Mammographic Findings: No significant masses, calcifications or other abnormalities are identified. No suspicious masses, areas of developing architectural distortion, or suspicious calcifications. There has been no significant interval change. BI/SCRN MAMM (CAD)W/JOON BILAT IMPRESSION: Stable examination. OVERALL FINAL ASSESSMENT BI-RADS 1: NEGATIVE. RECOMMEND ANNUAL MAMMOGRAPHIC SCREENING. RECOMMENDATION: Routine annual follow-up in 1 Year A letter with findings and recommendations will be mailed to the patient. Reading Location: [place] [id number]
--- OUTSIDE RECORDS SUMMARY | 2025-02-07 09:18 | XMS RPT_ITS | CCD ---
Author Organization [facility] Care Team Providers Care Performance Manager Name Role Phone Dr. Thi Rainey Primary Care Provider [phone] Redd, Dr. Ness Attending Provider [phone] Dr. Thi Rainey Referring Provider [phone] Redd, Dr. Ness Primary Care Provider [phone] Redd, Dr. Ness Attending Provider [phone] Redd, Dr. Ness Referring Provider [phone] KAVITHA Dong Attending Provider Redd VALADEZ, Dr. Ness Primary Care Provider Redd VALADEZ, Dr. Ness Attending Provider [phone] Redd VALADEZ, Dr. Ness Referring Provider [phone] Friend, Trevor Attending Unavailable Oleghe, Efewongbe Primary Care Unavailable Oleghe, Efewongbe Attending Unavailable Oleghe, Efewongbe Referring Unavailable Oleghe, Efewongbe Primary Care Unavailable Oleghe, Efewongbe Attending Unavailable Oleghe, Efewongbe Referring Unavailable Oleghe, Efewongbe Primary Care Unavailable Oleghe, Efewongbe Attending Unavailable Oleghe, Efewongbe Referring Unavailable Oleghe, Efewongbe Primary Care Unavailable Oleghe, Efewongbe Attending Unavailable Oleghe, Efewongbe Referring Unavailable Oleghe, Efewongbe Primary Care Unavailable Oleghe, Efewongbe Attending Unavailable Oleghe, Efewongbe Referring Unavailable Oleghe, Efewongbe Primary Care Unavailable Medications Current Medications Medication Drug Class(es) Dates Sig (Normalized) Sig (Original) calcium carbonate 1500 mg / cholecalciferol 500 unt oral capsule (4 sources) Vitamin D Start: 11-01-2022 Calcium Carbonate-Vitamin D3 (Calcium 600 With Vitamin D3) 600 mg-12.5 mcg (500 unit) capsule Active NMA PO DAILY November 01, 2022 12:00am Rbfvkzul-Dmp-Cccf-Fa-L utein (Centrum Silver Women) 8 mg iron-400 mcg-300 mcg tablet (1 source) Start: 11-01-2022 take 1 tablet by mouth once daily Dndwwebu-Zhl-Enok -Fa-Lutein (Centrum Silver Women) 8 mg iron-400 mcg-300 mcg tablet Active 1 TABLET PO DAILY November 01, 2022 12:00am Leihqwuf-Uzl-Tcto-Fa-V it K-Lut (Centrum Silver Women) 8 mg iron-400 mcg-300 mcg tablet (3 sources) Start: 11-01-2022 Qhfyyugt-Odn-Ftmu -Fa-Vit K-Lut (Centrum Silver Women) 8 mg iron-400 mcg-300 mcg tablet Active 1 {tbl} PO DAILY November 01, 2022 12:00am Start: 11-01-2022 take 1 tablet by beena th once daily Utzaobbm-Gjf-Bwna-Fa-Vit K-Lut (Centrum Silver Women) 8 mg iron-400 mcg-300 mcg tablet Active 1 TABLET PO DAILY November 01, 2022 12:00am Vit C,X-Hx-Lgkmr-Lutein-Zeax an (Preservision Areds-2) 250-90-40-1 mg capsule (1 source) Start: 11-19-2024 take 2 capsules by mouth once Vit C,I-Eu-Ecdkp-Lutein-Zeaxan (Preservision Areds-2) 250-90-40-1 mg capsule Active 1 {tbl} PO ONCE November 19, 2024 12:00am Completed/Discontinued Medications Medication Drug Class(es) Dates Sig (Normalized) Sig (Original) acetaminophen 500 mg oral tablet (4 sources) Start: 06-12-2020 End: 02-21-2021 Acetaminophen 500 MG tablet Discontinued 1000 mg PO EVERY 8 HOURS June 12, 2020 1:00am February 21, 2021 10:26am Do not take more than 3000 mg Tylenol in a 24-hour period. Start: 06-12-2020 End: 02-21-2021 take 3000 mg by mouth every eight hours Acetaminophen Discontinued 1000 MG PO EVERY 8 HOURS June 12, 2020 1:00am February 21, 2021 10:26am Do not take more than 3000 mg Tylenol in a 24-hour period. calcium carbonate 1500 mg oral tablet (4 sources) Start: 05-28-2020 End: 02-21-2021 take 1 tablet by mouth once daily Calcium Carbonate 600 MG tablet Discontinued 600 mg PO DAILY May 28, 2020 12:00am February 21, 2021 10:26am cephalexin 500 mg oral capsule (8 sources) Cephalosporin Antibacterial Start: 06-02-2020 End: 02-21-2021 take 1 capsule by mouth twice daily Cephalexin 500 mg capsule Discontinued 500 mg PO TWICE A DAY June 02, 2020 1:00am February 21, 2021 10:26am Start: 07-20-2019 End: 07-30-2019 take 1 capsule by mouth every twelve hours Cephalexin 500 mg capsule Discontinued 500 mg PO Q12H 20 July 20, 2019 1:00am July 29, 2019 1:00am July 30, 2019 1:08am cholecalciferol 0.025 mg oral tablet (4 sources) Vitamin D Start: 05-23-2020 End: 11-01-2022 take 1 tablet by mouth once daily Cholecalciferol (Vitamin D3) 25 mcg (1,000 unit) tablet Discontinued 25 ug PO DAILY May 23, 2020 12:00am November 01, 2022 2:03pm docusate sodium 50 mg / sennosides, penitentiary 8.6 mg oral tablet (4 sources) Start: 06-12-2020 End: 02-21-2021 Sennosides-Docusate Sodium 1 TABLET tablet Discontinued 2 {tbl} PO TWICE A DAY June 12, 2020 1:00am February 21, 2021 10:26am Take until first bowel movement, then as needed Start: 06-12-2020 End: 02-21-2021 Sennosides-Docusate Sodium D iscontinued 2 TABLET PO TWICE A DAY June 12, 2020 1:00am February 21, 2021 10:26am Take until first bowel movement, then as needed erythromycin 0.005 mg/mg ophthalmic ointment (4 sources) Macrolide, Macrolide Antimicrobial Start: 09-10-2019 End: 05-23-2020 Erythromycin 5 mg/gram (0.5 %) ointment Discontinued 0.5 [in_us] OPHTHALMIC TWICE A DAY 1 September 10, 2019 1:00am May 23, 2020 1:29pm Start: 09-10-2019 End: 05-23-2020 Erythromycin Discontinued 0. 5 INCH OPHTHALMIC TWICE A DAY September 10, 2019 1:00am May 23, 2020 1:29pm glucosamine 500 mg oral tablet (4 sources) Start: 05-23-2020 End: 02-21-2021 take 1 tablet by mouth twice daily at mealtime Glucosamine Hcl 500 mg tablet Discontinued 500 mg PO TWICE A DAY May 23, 2020 12:00am February 21, 2021 10:26am administer with meals levoFLOXacin 750 mg oral tablet (4 sources) Quinolone Antimicrobial Start: 04-11-2018 End: 04-16-2018 take 1 tablet by mouth once daily Levofloxacin 750 mg tablet Discontinued 750 mg PO DAILY 5 5 April 11, 2018 12:00am April 15, 2018 12:00am April 16, 2018 12:07am Ikjjxyev-Hhq-Na-Ly copen-Lutein (Centrum Silver) 0.4-300-250 mg-mcg-mcg tablet (4 sources) Start: 04-28-2018 End: 09-10-2019 Lpmdvxij-Oyt-Lm-Ly copen-Lutein (Centrum Silver) 0.4-300-250 mg-mcg-mcg tablet Discontinued 1 {tbl} PO DAILY April 28, 2018 12:00am September 10, 2019 3:00pm Start: 04-28-2018 End: 09-10-2019 take 1 tablet by mouth once daily Fescpfry-Cfj-Re-Lycopen-Lutein (Centrum Silver) 0.4-300-250 mg-mcg-mcg tablet Discontinued 1 TABLET PO DAILY April 28, 2018 12:00am September 10, 2019 3:00pm ofloxacin 3 mg/ml ophthalmic solution (8 sources) Quinolone Antimicrobial Start: 02-21-2021 End: 11-01-2022 Ofloxacin 0.3 % drops Discontinued 0 OPHTHALMIC .COMPLEX February 21, 2021 12:00am November 01, 2022 1:59pm put 1-2 drps into affected eye(s) every 2-4 h x 2 days, then 1-2 drps 4 times/day days 3-7 ophthalmic (eye) Start: 02-21-2021 End: 11-01-2022 Ofloxacin Discontinued 0 OPH THALMIC .COMPLEX February 21, 2021 12:00am November 01, 2022 1:59pm put 1-2 drps into affected eye(s) every 2-4 h x 2 days, then 1-2 drps 4 times/day days 3-7 ophthalmic (eye) oxyCODONE hydrochloride 5 mg oral tablet (4 sources) Opioid Agonist Start: 06-12-2020 End: 06-16-2020 take 5-10 mg by mouth every four hours as needed for pain Oxycodone 5 MG tablet Discontinued 5 - 10 mg PO EVERY 4 HOURS NEEDED as needed for Pain Score 4-10 36 4 June 12, 2020 June 15, 2020 1:00am June 16, 2020 1:03am predniSONE 10 mg oral tablet (2 sources) Start: 12-08-2023 End: 12-20-2023 Prednisone 10 mg tablet Discontinued 10 mg PO daily 30 December 08, 2023 12:00am December 19, 2023 12:00am December 20, 2023 12:05am Take 4 tabs once daily days 1-3 3 tabs once daily days 4-6 2 tabs once daily days 7-9 and 1 tab once daily days 10-12. rivaroxaban 10 mg oral tablet (4 sources) Factor Xa Inhibitor Start: 06-12-2020 End: 02-21-2021 take 1 tablet by mouth once daily Rivaroxaban 10 MG tablet Discontinued 10 mg PO DAILY@0600 13 June 12, 2020 1:00am February 21, 2021 10:26am Take once daily for 2 weeks postoperatively for DVT prophylaxis Problems Active Problems Problem Classification Problem Date Documented Date Episodic/Chronic Cataract (4 sources) Bilateral cataracts; Translations: [Unspecified cataract] 05-25-2020 Chronic Disorders of lipid metabolism (9 sources) Hyperlipidemia; Translations: [Hyperlipidemia, unspecified] Onset: 11-23-2024 06-30-2018 Chronic Esophageal disorders (2 sources) Gastroesophageal reflux disease; Translations: [Gastro-esophageal reflux disease without esophagitis] 05-23-2024 Chronic Essential hypertension (9 sources) Hypertensive disorder; Translations: [Essential (primary) hypertension] 11-01-2022 Chronic Inflammation; infection of eye (except that caused by tuberculosis or sexually transmitteddisease) (4 sources) Acute conjunctivitis; Translations: [Unspecified acute conjunctivitis, bilateral] 02-21-2021 Episodic Osteoarthritis (4 sources) Arthritis; Translations: [Unspecified osteoarthritis, unspecified site] 04-28-2018 Chronic Other bone disease and musculoskeletal deformities (5 sources) Osteopenia; Translations: [Other specified disorders of bone density and structure, unspecified site] 04-28-2018 Episodic Other bone disease and musculoskeletal deformities (4 sources) Other specified disorders of bone density and structure, unspecified site; Translations: [Disorder of bone and cartilage, unspecified] Onset: 11-19-2024 11-01-2022 Episodic Other circulatory disease (4 sources) Pulmonary congestion ; Translations: [Other specified symptoms and signs involving the circulatory and respiratory systems] 04-11-2018 Episodic Other ear and sense organ disorders (4 sources) Impacted cerumen; Translations: [Impacted cerumen, right ear] 06-30-2018 Episodic Other screening for suspected conditions (not mental disorders or infectious disease) (4 sources) Patient encounter status; Translations: [Encounter for screening for malignant neoplasm of colon] Onset: 02-16-2024 11-19-2024 Episodic Pneumonia (except that caused by tuberculosis or sexually transmitted disease) (8 sources) Pneumonia; Translations: [Pneumonia, unspecified organism] 04-11-2018 Episodic Poisoning by nonmedicinal substances (3 sources) Bee sting; Translations: [Toxic effect of venom of bees, accidental (unintentional), initial encounter] 12-08-2023 Episodic Unclassified (2 sources) Encounter for screening for malignant neoplasm of colon; Translations: [Z12.11 - Encounter for screening for malignant neoplasm of colon] Urinary tract infections (8 sources) Chronic urinary tract infection; Translations: [Urinary tract infection, site not specified] 05-25-2020 Episodic Past or Other Problems Problem Classification Problem Date Documented Da te Episodic/Chronic Unclassified (4 sources) History Child Births 02-26-2020 Results Test Name Value Interpretation Reference Range Facility Absolute neutrophil countOrd ered By: Thi Rainey on 11-19-2024 Neutrophils (Bld) [#/Vol] 4.4 10*3/uL 2.0-7.7 [facility] Anion gap in Serum or Plasma Ordered By: Thi Rainey on 11-19-2024 Anion gap [Moles/Vol] 11 mmol/L 5-15 [facility] BUN/creatinine ratioOrdered By: Thi Rainey on 11-19-2024 Urea nitrogen/Creatinine [Mass ratio] 19.3 mg/mg 10-20 [facility] Basophil percentageOrdered B y: Thi Rainey on 11-19-2024 Basophils/100 WBC (Bld) 0.5 % 0-1 [facility] Bilirubin, totalOrdered By: Thi Rainey on 11-19-2024 Bilirubin [Mass/Vol] 0.16 mg/dL 0.00-1.30 [facility] CBC W/Diff, Automatedon 10-31 Absolute Lymph 2.12 X10 3/uL Normal 0.83-4.51 [facility] Comment on above: Performed By: #### L 100.0100, L500.4050, L500.4100, L506.1001 #### [facility] [address] [place], [address] Absolute Neut 4.4 X10 3/uL Normal 2.0-7.7 [facility] Comment on above: Performed By: #### L 100.0100, L500.4050, L500.4100, L506.1001 #### [facility] [address] [place], [address] Basophils/100 WBC (Bld) 0.5 % Normal 0-1 [facility] Comment on above: Performed By: #### L 100.0100, L500.4050, L500.4100, L506.1001 #### [facility] [address] [place], [address] Eosinophils/100 WBC (Bld) 2.5 % Normal 0-5 [facility] Comment on above: Performed By: #### L 100.0100, L500.4050, L500.4100, L506.1001 #### [facility] [address] [place], [address] Erythrocyte distribution width (RBC) [Ratio] 15.4 % High 11.6-14.6 [facility] Comment on above: Performed By: #### L 100.0100, L500.4050, L500.4100, L506.1001 #### [facility] [address] [place], [address] Hematocrit (Bld) [Volume fraction] 40.9 % Normal 37-47 [facility] Comment on above: Performed By: #### L 100.0100, L500.4050, L500.4100, L506.1001 #### [facility] [address] [place], [address] Hemoglobin (Bld) [Mass/Vol] 13.7 g/dL Normal 12.0-15.0 [facility] Comment on above: Performed By: #### L 100.0100, L500.4050, L500.4100, L506.1001 #### [facility] [address] [place], [address] IG% 0.400 Normal 0.0-0.9 [facility] Comment on above: Result Comment: IG% - Immature Granulocytes (promyelocytes, myelocytes and metamyelocytes) > 1% indicates that a LEFT SHIFT is Present. Performed By: #### L 100.0100, L500.4050, L500.4100, L506.1001 #### [facility] [address] [place], [address] Lymphocytes/100 WBC (Bld) 29.0 % Normal 19-41 [facility] Comment on above: Performed By: #### L 100.0100, L500.4050, L500.4100, L506.1001 #### [facility] [address] [place], [address] MCH (RBC) [Entitic mass] 29.6 pg Normal 27.0-32.0 [facility] Comment on above: Performed By: #### L 100.0100, L500.4050, L500.4100, L506.1001 #### [facility] [address] [place], [address] MCHC (RBC) [Mass/Vol] 33.5 g/dL Normal 32-36 [facility] Comment on above: Performed By: #### L 100.0100, L500.4050, L500.4100, L506.1001 #### [facility] [address] [place], [address] MCV (RBC) [Entitic vol] 88.3 fL Normal 81-99 [facility] Comment on above: Performed By: #### L 100.0100, L500.4050, L500.4100, L506.1001 #### [facility] [address] [place], [address] Monocytes/100 WBC (Bld) 7.5 % Normal 0-10 [facility] Comment on above: Performed By: #### L 100.0100, L500.4050, L500.4100, L506.1001 #### [facility] [address] [place], [address] Neutrophils/100 WBC (Bld) 60.1 % Normal 47-70 [facility] Comment on above: Performed By: #### L 100.0100, L500.4050, L500.4100, L506.1001 #### [facility] [address] [place], [address] Nucleated RBC (Bld) [#/Vol] 0 10*3/uL Normal 0-5 [facility] Comment on above: Performed By: #### L 100.0100, L500.4050, L500.4100, L506.1001 #### [facility] [address] [place], [address] Platelet mean volume (Bld) [Entitic vol] 9.1 fL Normal 6.2-12.0 [facility] Comment on above: Performed By: #### L 100.0100, L500.4050, L500.4100, L506.1001 #### [facility] [address] [place], [address] Platelets (Bld) [#/Vol] 302 10*3/uL Normal 150-450 [facility] Comment on above: Performed By: #### L 100.0100, L500.4050, L500.4100, L506.1001 #### [facility] [address] [place], [address] RBC (Bld) [#/Vol] 4.63 10*6/uL Normal 4.2-5.4 [facility] Comment on above: Performed By: #### L 100.0100, L500.4050, L500.4100, L506.1001 #### [facility] [address] [place], [address] RDW SD 49.5 fl High 35.1-43.9 [facility] Comment on above: Performed By: #### L 100.0100, L500.4050, L500.4100, L506.1001 #### [facility] [address] [place], [address] WBC (Bld) [#/Vol] 7.3 10*3/uL Normal 4.4-11.0 [facility] Comment on above: Performed By: #### L 100.0100, L500.4050, L500.4100, L506.1001 #### [facility] [address] [place], [address] Calculated very low density lipoprotein (VLDL) cholesterol measurementOrdered By: Thi Rainey on 11-19-2024 VLDL Cholesterol 48 mg/dL High 5-40 [facility] Carbon dioxide, total [Moles /volume] in Central venous bloodOrdered By: Thi Rainey on 11-19-2024 CO2 [Moles/Vol] 24.5 mmol/L 21.0-32.0 [facility] Chloride assayOrdered By: Monica Rainey on 11-19-2024 Chloride [Moles/Vol] 105 mmol/L 98-108 [facility] Comprehensive Metabolic Prof ilon 11-19-2024 Albumin [Mass/Vol] 4.2 g/dL Normal 3.4-4.8 [facility] Comment on above: Performed By: #### L 100.0100, L500.4050, L500.4100, L506.1001 #### [facility] [address] [place], [address] Albumin/Globulin [Mass ratio] 1.5 {ratio} Normal 0.9-2.4 [facility] Comment on above: Performed By: #### L 100.0100, L500.4050, L500.4100, L506.1001 #### [facility] [address] [place], [address] ALK PHOS 90 U/L Normal 35-104 [facility] Comment on above: Performed By: #### L 100.0100, L500.4050, L500.4100, L506.1001 #### [facility] [address] [place], [address] ALT [Catalytic activity/Vol] 13 U/L Normal <=34 [facility] Comment on above: Performed By: #### L 100.0100, L500.4050, L500.4100, L506.1001 #### [facility] [address] [place], [address] AST [Catalytic activity/Vol] 22 U/L Normal <=31 [facility] Comment on above: Performed By: #### L 100.0100, L500.4050, L500.4100, L506.1001 #### [facility] [address] [place], [address] Bilirubin [Mass/Vol] 0.16 mg/dL Normal 0.00-1.30 [facility] Comment on above: Performed By: #### L 100.0100, L500.4050, L500.4100, L506.1001 #### [facility] [address] [place], [address] BUN/CRE 19.3 RATIO Normal 10-20 [facility] Comment on above: Performed By: #### L 100.0100, L500.4050, L500.4100, L506.1001 #### [facility] [address] [place], [address] Calcium [Mass/Vol] 9.4 mg/dL Normal 7.6-11.0 [facility] Comment on above: Performed By: #### L 100.0100, L500.4050, L500.4100, L506.1001 #### [facility] [address] [place], [address] Chloride [Moles/Vol] 105 mmol/L Normal 98-108 [facility] Comment on above: Performed By: #### L 100.0100, L500.4050, L500.4100, L506.1001 #### [facility] [address] [place], [address] CO2 [Moles/Vol] 24.5 mmol/L Normal 21.0-32.0 [facility] Comment on above: Performed By: #### L 100.0100, L500.4050, L500.4100, L506.1001 #### [facility] [address] [place], [address] Creatinine [Mass/Vol] 0.77 mg/dL Normal 0.70-1.20 [facility] Comment on above: Performed By: #### L 100.0100, L500.4050, L500.4100, L506.1001 #### [facility] [address] [place], [address] GAP 11 Normal 5-15 [facility] Comment on above: Performed By: #### L 100.0100, L500.4050, L500.4100, L506.1001 #### [facility] [address] [place], [address] GFR/1.73 sq M.predicted among non-blacks MDRD (S/P/Bld) [Vol rate/Area] 82 mL/min/{1.73_m2} Normal >60 [facility] Comment on above: Result Comment: mL/m in/1.73m2 CKD-EPI Creatinine Equation (2020) Performed By: #### L 100.0100, L500.4050, L500.4100, L506.1001 #### [facility] [address] [place], [address] Globulin (S) [Mass/Vol] 2.8 g/dL Normal 2.2-4.2 [facility] Comment on above: Performed By: #### L 100.0100, L500.4050, L500.4100, L506.1001 #### [facility] [address] [place], [address] Glucose [Mass/Vol] 108 mg/dL High 70-99 [facility] Comment on above: Performed By: #### L 100.0100, L500.4050, L500.4100, L506.1001 #### [facility] [address] [place], [address] Potassium [Moles/Vol] 4.1 mmol/L Normal 3.3-5.1 [facility] Comment on above: Performed By: #### L 100.0100, L500.4050, L500.4100, L506.1001 #### [facility] [address] [place], [address] Sodium [Moles/Vol] 140 mmol/L Normal 133-145 [facility] Comment on above: Performed By: #### L 100.0100, L500.4050, L500.4100, L506.1001 #### [facility] [address] [place], [address] T PROT 7.0 g/dL Normal 5.9-8.4 [facility] Comment on above: Performed By: #### L 100.0100, L500.4050, L500.4100, L506.1001 #### [facility] [address] [place], [address] Urea nitrogen [Mass/Vol] 15 mg/dL Normal 4-19 [facility] Comment on above: Performed By: #### L 100.0100, L500.4050, L500.4100, L506.1001 #### [facility] [address] [place], [address] Eosinophil percentageOrdered By: Thi Rainey on 11-19-2024 Eosinophils/100 WBC (Bld) 2.5 % 0-5 [facility] Erythrocyte distribution wid th (RBC) [Ratio]Ordered By: Thi Rainey on 11-19-2024 Erythrocyte distribution width (RBC) [Entitic vol] 49.5 fL High 35.1-43.9 [facility] Erythrocyte distribution wid th ratioOrdered By: Chapocarrollflavio Rainey on 11-19-2024 Erythrocyte distribution width (RBC) [Ratio] 15.4 % High 11.6-14.6 [facility] GFR/1.73 sq M.predicted nohemy g non-blacks MDRD (S/P/Bld) [Vol rate/Area]Ordered By: Thi Rainey on 11-19-2024 Estimated GFR (MDRD) Non-Af Amer 82 >60 [facility] Comment on above: mL/min/1.73m2 CKD-EP I Creatinine Equation (2020) Hematocrit Auto (Bld) [Volum e fraction]Ordered By: Thi Rainey on 11-19-2024 Hematocrit (Bld) [Volume fraction] 40.9 % 37-47 [facility] Hemoglobin measurementOrdere d By: Thi Rainey on 11-19-2024 Hemoglobin (Bld) [Mass/Vol] 13.7 g/dL 12.0-15.0 [facility] Immature granulocytes/100 WB C Auto (Bld)Ordered By: Thi Rainey on 11-19-2024 Immature granulocytes/100 WBC (Bld) 0.400 % 0.0-0.9 [facility] Comment on above: IG% - Immature Granu locytes (promyelocytes, myelocytes and metamyelocytes) > 1% indicates that a LEFT SHIFT is Present. Internal Medicine Office Vis itoafsaneh 11-19-2024 Internal Medicine Office Visit [facility] [address] [place] [address] OFFICE VISIT Date of Service: 11/19/24 MR#: [id number] Acct: [id number] Name: GERRY WALL Rep #: [id number] : 1950 Provider: Dr. Thi ferro MD Age/Sex: 74/F [place] [facility] [place] Status: Signed Intake Vital Signs 05/23/24 13:04 11/19/24 13:16 Height 5 ft 4 in 5 ft 4 in Weight: 136 lb 137 lb BMI 23.3 23.5 BP 124/72 H 124/68 H Blood Pressure Location Lt brachial Lt brachial Position Sitting Sitting Respiration 16 18 Pulse 77 82 Pulse Source Monitor Monitor Temp 97.1 F L 96.8 F L Temp Source Temporal Temporal Pulse Oximetry (%) 99 97 Oxygen Delivery Method room air room air Intake Visit Reasons: 6 m fu Chief Complaint: 6 m fu Is patient in pain?: No Allergies No Known Allergies Allergy (Verified 11/19/24 13:17) Medications ???Medication ???Instructions ???Recorded ???Confirmed ???Type calcium 600 mg (as cap PO DAILY 11/01/22 11/19/24 His tory carbonate)-vitamin D3 12.5 mcg (500 unit) capsule (Calcium with Vit D3) [id number] 8 mg-folic 400 1 tab PO DAILY 11/01/22 11/19/24 History mcg-K 50 mcg-lutein 300 mcg tablet (Centrum Silver Women) vit C 250 mg-vit E 90 mg-zinc 40 1 tab PO ONCE 11/19/24 11/19/24 Hi story mg-copper 1 [id number]-jzddtk capsule (PreserVision AREDS-2) Have you fallen in the past year?: No PFSH Medical History (Updated 11/19/24 @ 13:[address] Thi Rainey MD) Colon cancer screening GERD (gastroesophageal reflux disease) Health care maintenance Hypertension Knee MCL sprain Pneumonia Cataracts, bilateral Chronic UTI History Child Births Arthritis Surgical History History of cataract surgery History of knee surgery History of tubal ligation History of foot surgery Family History Mother Breast cancer Arthritis Father , at age 43 Rheumatic fever with heart involvement Social History Smoking Status: Never smoker alcohol intake: current alcohol intake frequency: a few times a week substance use type: does not use what type of physical activity do you participate in: walking HPI HPI Chief Complaint: 6 m fu Details: GERRY WALL, is a 74 F who presents to the office today for follow-up of her chronic conditions. No acute concerns at this time. She feels well. At her last visit had reported concerns with increased reflux however she states that at this time, her symptoms have resolved. No dark or bloody stool or unintentional weight changes. History of hypertension, blood pressure today is at 124/68 mmHg. Stays active. No chest pain, palpitation or shortness of breath. Other chronic medical conditions are stable. ROS Const Constitutional: No body ache, chills, excessive sweating, fatigue, fever(s), frequent falls, headache(s), snoring, weight change, sleep problems, abnormal sleep pattern or change in appetite Eyes Eyes: No blurry vision, change in vision, eye pain or Light sensitivity ENT ENT: No abnormal hearing, ear or mastoid pain, tinnitus, nasal congestion, headache(s), neck pain or sore throat Resp Respiratory: No cough, shortness of breath, snoring or wheezing Cardio Cardiology: No chest pain at rest, chest pain with exertion, excessive sweating, shortness of breath, dyspnea on exertion, lightheadedness, orthopnea or palpitations Gastro GI: No abdominal pain, change in bowel habits, constipation, cramping, diarrhea, nausea/dyspepsia or vomiting Genitourinary-Femal e: No burning urination, painful urination, urinary incontinence, urinary frequency, abnormal vaginal bleeding or pelvic pain Musc Musculoskeletal: No abnormal gait, joint pain, back pain, limited range of motion, neck pain, numbness or tingling Skin Skin: No dry skin, redness, lesions, itchy eyes, rash or wounds Neuro Neurology: No abnormal gait, abnormal hearing, frequent falls, headache(s), memory loss, numbness or tingling Psych Psychiatric: No abnormal sleep pattern, No anxiety, No change in appetite, No irritability, No memory loss and No Thoughts of harming yourself/Others Endo Endocrine: No cold intolerance, excessive sweating, fatigue, flushing, heat intolerance, increased thirst/drinking, increased hunger or weight change Aller/Imm Allergy/Immunologic : No itchy eyes, seasonal allergy symptoms, hives or wheezing Isaiah/Lymp Hematologic/Lymphat ic: No easy bleeding, easy bruising, enlarged lymph nodes or other Exam Const General: cooperative, comfortable and no acute distress Orientation: alert, awake and oriented x3 [facility] Head: normal to inspection, no (more content not included)... Normal [facility] LDL calc ser/plasOrdered By: Thi Rainey on 11-19-2024 LDL Cholesterol, Calculated 140 mg/dL [facility] Comment on above: Gafpjvdmxm=145-516 m g/dL & Higher Hzml=472 mg/dL or greater Laboratory - Chemistry and C hemistry - challengeOrdered By: Thi Rainey on 11-19-2024 AST [Catalytic activity/Vol] 22 U/L <32 [facility] Lipid Profileon 11-19-2024 CHOL:HDL 4.42 Normal [facility] Comment on above: Performed By: #### L 100.0100, L500.4050, L500.4100, L506.1001 #### [facility] [address] [place], [address] Cholesterol [Mass/Vol] 243 mg/dL High <=200 [facility] Comment on above: Result Comment: Chol esterol level, Desirable <200 mg/dL Borderline high cholesterol 200-239 mg/dL High cholesterol >=240 mg/dL Recommendations of the NCEP Adult Treatment Panel for the following risk-cutoff thresholds for the [place] population. Performed By: #### L 100.0100, L500.4050, L500.4100, L506.1001 #### [facility] [address] [place], [address] Cholesterol in HDL [Mass/Vol] 55 mg/dL Normal [facility] Comment on above: Result Comment: Tanya onal Cholesterol Education Program (NCEP) guidelines: <40 mg/dL: Low HDL-cholesterol (major risk factor for CHD) >= 60 mg/dL: High HDL-cholesterol (negative risk factor for CHD) HDL-cholesterol is affected by a number of factors, e.g. smoking, exercise, hormones, sex and age. Performed By: #### L 100.0100, L500.4050, L500.4100, L506.1001 #### [facility] [address] [place], [address] Cholesterol in LDL [Mass/Vol] 140 mg/dL Normal [facility] Comment on above: Result Comment: Bord mifcpa=673-630 mg/dL Higher Kfew=392 mg/dL or greater Performed By: #### L 100.0100, L500.4050, L500.4100, L506.1001 #### [facility] [address] [place], [address] Cholesterol in VLDL [Mass/Vol] 48 mg/dL High 5-40 [facility] Comment on above: Performed By: #### L 100.0100, L500.4050, L500.4100, L506.1001 #### [facility] [address] [place], [address] Triglyceride [Mass/Vol] 241 mg/dL High [facility] Comment on above: Result Comment: The drugs N-Acetylcysteine and Metamizole may falsely depress this assay. Normal range: <150 mg/dL Borderline High: 150-199 mg/dL High: 200-499 mg/dL Very High: >500 mg/dL Performed By: #### L 100.0100, L500.4050, L500.4100, L506.1001 #### [facility] [address] [place], [address] Lymphocytes Auto (Unsp spec) [#/Vol]Ordered By: Thi Rainey on 11-19-2024 Lymphocytes (Bld) [#/Vol] 2.12 10*3/uL 0.83-4.5 1 [facility] Lymphocytes/100 WBC Auto (Un sp spec)Ordered By: Thi Rainey on 11-19-2024 Lymphocytes/100 WBC (Bld) 29.0 % 19-41 [facility] MCV (mean corpuscular volume ) determinationOrdered By: Thi Rainey on 11-19-2024 MCV (RBC) [Entitic vol] 88.3 fL 81-99 [facility] Mean corpuscular hemoglobin (MCH) determinationOrdered By: Thi Rainey on 11-19-2024 MCH (RBC) [Entitic mass] 29.6 pg 27.0-32.0 [facility] Mean corpuscular hemoglobin concentration (MCHC) determinationOrdered By: Thi Rainey on 11-19-2024 MCHC (RBC) [Mass/Vol] 33.5 g/dL 32-36 [facility] Mean platelet volume determi nationOrdered By: Thi Rainey on 11-19-2024 Platelet mean volume (Bld) [Entitic vol] 9.1 fL 6.2-12.0 [facility] Monocyte percentageOrdered B y: Thi Rainey on 11-19-2024 Monocytes/100 WBC (Bld) 7.5 % 0-10 [facility] Neutrophil percentageOrdered By: Thi Rainey on 11-19-2024 Neutrophils/100 WBC (Bld) 60.1 % 47-70 [facility] Nucleated red blood cell per centageOrdered By: Thi Rainey on 11-19-2024 Nucleated RBC/100 WBC (Bld) [Ratio] 0 % 0-5 [facility] Platelet countOrdered By: Monica Rainey on 11-19-2024 Platelets (Bld) [#/Vol] 302 10*3/uL 150-450 [facility] Potassium (Unsp spec) [Mass/ Vol]Ordered By: Thi Rainey on 11-19-2024 Potassium [Moles/Vol] 4.1 mmol/L 3.3-5.1 [facility] RBC Auto (Bld) [#/Vol]Ordere d By: Thi Rainey on 11-19-2024 RBC (Bld) [#/Vol] 4.63 10*6/uL 4.2-5.4 [facility] Screening total cholesterol/ high density lipoprotein (HDL) cholesterol ratioOrdered By: Thi Rainey on 11-19-2024 Cholesterol.total/Cholest heather in HDL [Mass ratio] 4.42 {ratio} [facility] Serum creatinine measurement (mass/volume)Ordered By: Thi Rainey on 11-19-2024 Creatinine [Mass/Vol] 0.77 mg/dL 0.70-1.20 [facility] Serum globulin measurementOr dered By: Thi Rainey on 11-19-2024 Globulin (S) [Mass/Vol] 2.8 g/dL 2.2-4.2 [facility] Serum glucose measurement (m ass/volume)Ordered By: Thi Rainey on 11-19-2024 Glucose [Mass/Vol] 108 mg/dL High 70-99 [facility] Serum or plasma alanine marquez otransferase (ALT) measurementOrdered By: Thi Rainey on 11-19-2024 ALT [Catalytic activity/Vol] 13 U/L <35 [facility] Serum or plasma albumin ivan urement (mass/volume)Ordered By: Monicaseth Schofieldjennyvlad on 11-19-2024 Albumin [Mass/Vol] 4.2 g/dL 3.4-4.8 [facility] Serum or plasma albumin/glob ulin mass ratioOrdered By: [facility] Schofieldv[facility] on 11-19-2024 Albumin/Globulin [Mass ratio] 1.5 {ratio} 0.9-2.4 [facility] Serum or plasma alkaline kendall sphatase measurementOrdered By: [facility] Schofieldvlad 11-19-2024 ALP [Catalytic activity/Vol] 90 U/L 35-104 [facility] Serum or plasma calcium ivan urement (mass/volume)Ordered By: [facility] Rainey 11-19-2024 Calcium [Mass/Vol] 9.4 mg/dL 7.6-11.0 [facility] Serum or plasma cholesterol in HDL measurement (mass/volume)Ordered By: Monicaseth Rainey 11-19-2024 Cholesterol in HDL [Mass/Vol] 55 mg/dL >40 [facility] Comment on above: National Cholesterol Education Program (NCEP) guidelines:<40 mg/dL: Low HDL-cholesterol (major risk factor for CHD)>= 60 mg/dL: High HDL-cholesterol (negative risk factor for CHD)HDL-cholesterol is affected by a number of factors, e.g. smoking, exercise, hormones, sex and age. Serum or plasma cholesterol measurement (mass/volume)Ordered By: Thi Rainey on 11-19-2024 Cholesterol [Mass/Vol] 243 mg/dL High <201 [facility] Comment on above: Cholesterol level, D esirable <200 mg/dLBorderline high cholesterol 200-239 mg/dLHigh cholesterol >=240 mg/dLRecommendations of the NCEP Adult Treatment Panel for the following risk-cutoff thresholds for the [place] population. Serum or plasma urea nitroge n measurement (mass/volume)Ordered By: Thi Rainey on 11-19-2024 Urea nitrogen [Mass/Vol] 15 mg/dL 4-19 [facility] Sodium levelOrdered By: Chapo jericho Redd on 11-19-2024 Sodium [Moles/Vol] 140 mmol/L 133-145 [facility] Total proteinOrdered By: Sloanvlad petersonflavio Rainey on 11-19-2024 Protein [Mass/Vol] 7.0 g/dL 5.9-8.4 [facility] Triglycerides measurementOrd ered By: Thi Rainey on 11-19-2024 Triglyceride [Mass/Vol] 241 mg/dL High <199 [facility] Comment on above: The drugs N-Acetylcy steine and Metamizole may falsely depress this assay. Normal range: <150 mg/dLBorderline High: 150-199 mg/dLHigh: 200-499 mg/dLVery High: >500 mg/dL Vitamin D, 25-hydroxyOrdered By: Thi Rainey on 11-19-2024 Vitamin D 25-Hydroxy 44.8 ng/mL 30-100 [facility] Comment on above: Vitamin D StatusDefi ciency: <20 ng/mL (50nmol/L)Insufficiency: 20-30 ng/mL (50-75 nmol/L)Sufficiency: 30-100 ng/mL (75-250 nmol/L)Toxicity: >100 ng/mL (>250 nmol/L) Vitamin D,25 Hydroxyon 11-19 Vitamin D 25-OH 44.8 ng/mL Normal 30-100 [facility] Comment on above: Result Comment: Nelsy min D Status Deficiency: <20 ng/mL (50nmol/L) Insufficiency: 20-30 ng/mL (50-75 nmol/L) Sufficiency: 30-100 ng/mL (75-250 nmol/L) Toxicity: >100 ng/mL (>250 nmol/L) Performed By: #### L 100.0100, L500.4050, L500.4100, L506.1001 #### [facility] [place], [address] White blood cell (WBC) count Ordered By: Thi Rainey on 11-19-2024 WBC (Bld) [#/Vol] 7.3 10*3/uL 4.4-11.0 [facility] Internal Medicine Office Vis bennieafsaneh 05-23-2024 Internal Medicine Office Visit [facility] [address] [place] [address] [place] [address] OFFICE VISIT Date of Service: 05/23/24 MR#: [id number] Acct: [id number] Name: GERRY WALL Rep #: [id number] : 1950 Provider: Dr. Thi ferro MD Age/Sex: 73/F [place] [facility] Status: Signed Intake Vital Signs 11/21/23 13:05 05/23/24 13:04 Height 5 ft 4 in 5 ft 4 in Weight: 136 lb BMI 23.3 BP 124/72 H Blood Pressure Location Lt brachial Position Sitting Respiration 16 Pulse 77 Pulse Source Monitor Temp 97.1 F L Temp Source Temporal Pulse Oximetry (%) 99 Oxygen Delivery Method room air Intake Visit Reasons: 6 M FU Chief Complaint: Fu chronic conditions. Physician Industrial Required: No Is patient in pain?: No Allergies No Known Allergies Allergy (Verified 05/23/24 12:59) Medications ???Medication ???Instructions ???Recorded ???Confirmed ???Type calcium 600 mg (as cap PO DAILY 11/01/22 05/23/24 History carbonate)-vitamin D3 12.5 mcg (500 unit) capsule (Calcium with Vit D3) mazfufvd-[id number] 8 mg-folic 400 1 tab PO DAILY 11/01/22 05/23/24 History mcg-K 50 mcg-lutein 300 mcg tablet (Centrum Silver Women) Have you fallen in the past year?: No Nurse's Note: States lately she has been getting heartburn and feeling very full after eating. States it doesn't happen all the time but when she eats too much, tums and gas x helps. [facility] Medical History (Updated 05/23/24 @ 13:[address] Thi Rainey MD) GERD (gastroesophageal reflux disease) Health care maintenance Hypertension Knee MCL sprain Pneumonia Cataracts, bilateral Chronic UTI History Child Births Arthritis Surgical History History of cataract surgery History of knee surgery History of tubal ligation History of foot surgery Family History Mother Breast cancer Arthritis Father , at age 43 Rheumatic fever with heart involvement Social History Smoking Status: Never smoker alcohol intake: current alcohol intake frequency: a few times a week substance use type: does not use what type of physical activity do you participate in: walking HPI HPI Chief Complaint: Fu chronic conditions. Details: GERRY WALL, is a 73 F who presents to the office today for follow-up of her chronic conditions, also has some concerns. She states that lately, she has had increased heartburn and feeling full. This is typically after certain foods and Tums/Gas-X has been helpful. In between these episodes, she feels well. No dark or bloody stool or unintentional weight changes. Does not think there is need for consistent medication or EGD at this time. History of hypertension, blood pressure today at 124/72 mmHg. Readings have been generally less than 130. Stays active. Other chronic medical conditions are stable. ROS Const Constitutional: No body ache, chills, excessive sweating, fatigue, fever(s), frequent falls, headache(s), snoring, weakness, sleep problems or change in appetite Eyes Eyes: No blurry vision, change in vision, vision loss, floaters, visual disturbances, eye pain or Light sensitivity ENT ENT: No abnormal hearing, ear or mastoid pain, tinnitus, balance problems, nosebleed/epistaxis , nasal congestion, headache(s), neck pain or sore throat Resp Respiratory: No cough, excessive phlegm production, pain on inspiration, shortness of breath, snoring or wheezing Cardio Cardiology: No chest pain at rest, chest pain with exertion, excessive sweating, shortness of breath, dyspnea on exertion, lightheadedness, orthopnea or palpitations Gastro GI: No abdominal pain, change in bowel habits, constipation, cramping, diarrhea, nausea/dyspepsia or vomiting Genitourinary-Femal e: No burning urination, painful urination, urinary incontinence, urinary frequency, suprapubic fullness, side pain, abnormal vaginal bleeding or pelvic pain Musc Musculoskeletal: No abnormal gait, joint pain, back pain, limited range of motion, neck pain or numbness Skin Skin: No dry skin, redness, excessive hair growth, yellowing of the eye, lesions, itchy eyes, rash or wounds Neuro Neurology: No abnormal gait, abnormal hearing, behavioral changes, unsteady gait/balance, weakness, frequent falls, headache(s), memory loss, numbness or visual disturbances Psych Psychiatric: No anxiety, No behavioral changes, No change in appetite, No depression, No memory loss and No Thoughts of harming yourself/Others Endo Endocrine: No cold intolerance, excessive sweating, fatigue, flushing, heat intolerance, increased thirst/drinking or increased hunger Aller/Imm Allergy (more content not included)... Normal [facility] Dexa Bone Density Studyon Dexa Bone Density Study [facility] Imaging Services [address] [place] [address] [id number] Dexa Bone Density Study MR#: [id number] Acct: [id number] Name: GERRY WALL Rep #: [id number] : 1950 F 73 From: Juvencio dey MD PCP: Dr. Thi Rainey MD Status: [facility] Study: Dexa Bone Density Study Date of Exam: 02/07/24 Exam# [id number] Ordering Dr: Thi Rainey MD -[id number] STUDY: DUAL ENERGY X-RAY ABSORPTIOMETRY / DXA REASON FOR EXAM: Female, 73 years old. Post menopausal TECHNIQUE: Bone Mineral Density (BMD) measurements of lumbar spine and left hip were obtained. COMPARISON: Comparison is made with prior study dated January 21, 2022. FINDINGS: Lumbar Spine (L1-L4): g/cm2 (1.105) / T-score (0.5) / Z-score (2.7) Findings are suggestive of normal bone density with a fracture risk. Left Femur Total: g/cm2 (0.905) / T-score (-0.3) / Z-score (1.3) Left Femoral Neck: g/cm2 (0.674) / T-score (-1.6) / Z-score (0.3) The T-Scores on the most recent prior examination were: Lumbar Spine (L1-L4): There has been improvement of bone density since the previous examination. Left Femur Total: which represents a worsening of 1.3%. BD/Dexa Bone Density Study IMPRESSION: The patient is considered osteopenic as outlined below according to World Jorge Alberto Organization (WHO) criteria with a moderate fracture risk. There has been worsening of bone density since the previous examination. Reference Information: The T-score is the number of standard deviations above or below the standard which is normal for young adults at their peak bone mineral density. The World Health Organization (WHO) interprets the T-scores as follows: Above -1 Normal bone density Between -1 and -2.5 Osteopenia Equal to / or below -2.5 Osteoporosis As a practical clinical guideline, osteopenia may be graded as follows: Mild -1 through -1.5 Moderate -1.6 through -2.0 Severe -2.1 through -2.4 The Z-score is the number of standard deviations above or below age-matched controls. A Z-score of less than -1.5 would be considered abnormal. References: 1. NIH Osteoporosis and Related Bone Diseases www osteo.org 2. International Society for Clinical Densitometry www iscd.org 3. National Osteoporosis Foundation www nof.org Electronically Signed: Juvencio Childs MD at 13:51 EDT , CC: Dr. Thi Rainey MD Informatics Nurse: Signed Normal [facility] SCRN MAMM (CAD)W/JOON BILATo n 02-07-2024 SCRN MAMM (CAD)W/JOON BILAT [facility] Imaging Services [address] [place] [id number] SCRN MAMM (CAD)W/JOON BILAT MR#: [id number] Acct: [id number] Name: GERRY WALL Rep #: [id number] : 1950 F 73 From: Juvencio dey MD PCP: Dr. Thi Rainey MD Status: REG [facility] Study: SCRN MAMM (CAD)W/JOON BILAT Date of Exam: 04/24 Exam# [id number] Ordering Dr: Thi Rainey MD -[id number] MAMMOGRAPHY - BILATERAL SCREENING REASON FOR EXAM: Female, 73 years old. Routine annual screening examination. PERTINENT HISTORY: Mother with breast cancer. TECHNIQUE: Digital bilateral breast joon (3D mammographic acquisition) in the CC and MLO projections. 2-D mediolateral oblique (MLO) and craniocaudad (CC) views of both breasts were obtained. CAD: Full Field Digital Mammography with Computer Added Detection was performed. COMPARISON: Comparison is made with prior study dated February 02, 2023 and January 21, 2022. FINDINGS: Breast Composition: The breasts are almost entirely fatty. There are no dominant masses or suspicious calcifications. No other significant abnormalities are identified. There has been no significant change since the prior study. BI/SCRN MAMM (CAD)W/JOON BILAT IMPRESSION: Stable bilateral screening mammogram. Yearly follow-up mammogram recommended. (A) ASSESSMENT CATEGORY: BIRADS Category 1: Negative. A letter regarding these results will be sent to the patient by the facility within 30 days. Approximately 10% of breast cancers are not detected by mammography. A normal mammogram should not delay biopsy of a clinically suspicious abnormality. [id number] Electronically Signed: Juvencio Childs MD at 10:46 EDT , CC: Dr. Thi Rainey MD Informatics Nurse: Signed Normal [facility] Absolute lymphocyte countOrd ered By: Thi Rainey on 12-01-2023 Lymphocytes Auto (Unsp spec) [#/Vol] 2.07 10*3/uL 0.83-4.51 [facility] Automated lymphocyte count a s percentage of total leukocytesOrdered By: Thi Rainey on 12-01-2023 Lymphocytes/100 WBC Auto (Unsp spec) 33.1 % 19-41 [facility] Basophil percentageOrdered B y: Thi Rainey on 12-01-2023 Basophils/100 WBC (Bld) 0.6 % 0-1 [facility] Bilirubin [Mass/Vol] 0.50 mg/dL 0.20-1.00 [facility] Comment on above: For patients on eltr ombopag therapy, use of Dimension [place] TBIL is not recommended. Chloride [Moles/Vol] 107 mmol/L 98-107 [facility] Cholesterol [Mass/Vol] 234 mg/dL <200 [facility] Comment on above: <200 mg/dL Desirable 200-240 mg/dL Borderline >240 mg/dL High Risk Eosinophils/100 WBC (Bld) 3.4 % 0-5 [facility] Glucose [Mass/Vol] 103 mg/dL 74-106 [facility] Comment on above: Fasting Glucose resu lt from 100 to 125 mg/dL suggests IMPAIRED HOMEOSTASIS per A.D.A. criteria. Hemoglobin (Bld) [Mass/Vol] 14.2 g/dL 12.0-15.0 [facility] Monocytes/100 WBC (Bld) 8.5 % 0-10 [facility] Neutrophils (Bld) [#/Vol] 3.4 10*3/uL 2.0-7.7 [facility] Neutrophils/100 WBC (Bld) 54.1 % 47-70 [facility] Potassium [Moles/Vol] 4.3 mmol/L 3.5-5.1 [facility] Protein [Mass/Vol] 7.2 g/dL 6.4-8.2 [facility] Sodium [Moles/Vol] 141 mmol/L 136-145 [facility] Triglyceride [Mass/Vol] 112 mg/dL <199 [facility] Comment on above: The drugs N-Acetylcy steine and Metamizole may falsely depress this assay.Serum Triglycerides Reference Interval Normal <150 mg/dL Borderline high 150 - 199 mg/dL High 200 - 499 mg/dL Very High > or = 500 mg/dL WBC (Bld) [#/Vol] 6.3 10*3/uL 4.4-11.0 [facility] Blood platelet adequacy dete ction by light microscopyOrdered By: Thi Rainey on 12-01-2023 Platelets LM Ql (Bld) MOD DEC ADEQ [facility] Determination of erythrocyte mean corpuscular volume (MCV)Ordered By: Thi Rainey on 12-01-2023 MCV (RBC) [Entitic vol] 91.1 fL 81-99 [facility] Erythrocyte distribution wid th ratioOrdered By: Thi Rainey on 12-01-2023 Erythrocyte distribution width (RBC) [Ratio] 14.6 % 11.6-14.6 [facility] Erythrocyte distribution wid th standard deviationOrdered By: Thi Rainey on 12-01-2023 Erythrocyte distribution width (RBC) [Entitic vol] 49.0 fL 35.1-43.9 [facility] Hematocrit Auto (Bld) [Volum e fraction]Ordered By: Thi Rainey on 12-01-2023 Hematocrit (Bld) [Volume fraction] 44.9 % 37-47 [facility] Immature granulocytes/100 WB C Auto (Bld)Ordered By: Thi Rianey on 12-01-2023 Immature granulocytes/100 WBC (Bld) 0.300 % 0.0-0.9 [facility] Comment on above: IG% - Immature Granu locytes (promyelocytes, myelocytes and metamyelocytes) > 1% indicates that a LEFT SHIFT is Present. Laboratory - Chemistry and C hemistry - challengeOrdered By: Thi Rainey on 12-01-2023 Albumin/Globulin [Mass ratio] 1.0 {ratio} 0.9-2.4 [facility] ALP [Catalytic activity/Vol] 68 U/L 45-117 [facility] ALT [Catalytic activity/Vol] 20 U/L 13-56 [facility] Cholesterol in HDL [Mass/Vol] 63 mg/dL >40 [facility] Comment on above: The drugs N-Acetylcy steine and Metamizole may falsely depress this assay. Reference Range HDL <40 mg/dL Low HDL Cholesterol HDL >or= 60 mg/dL High HDL Cholesterol Cholesterol in LDL [Mass/Vol] 149 mg/dL 0-130 [facility] CO2 [Moles/Vol] 29.0 mmol/L 21.0-32.0 [facility] Globulin (S) [Mass/Vol] 3.6 g/dL 2.2-4.2 [facility] Urea nitrogen/Creatinine [Mass ratio] 12.9 mg/mg 10-20 [facility] - Hematology and Cell countsOrdered By: Thi Rainey on 12-01-2023 Anisocytosis Ql (Bld) 2+ [facility] MCH (RBC) [Entitic mass] 28.8 pg 27.0-32.0 [facility] MCHC (RBC) [Mass/Vol] 31.6 g/dL 32-36 [facility] Nucleated RBC/100 WBC (Bld) [Ratio] 0 % 0-5 [facility] Platelet mean volume (Bld) [Entitic vol] 8.4 fL 6.2-12.0 [facility] Platelets (Bld) [#/Vol] 270 10*3/uL 150-450 [facility] No Panel InformationOrdered By: Thi Rainey on 12-01-2023 Estimated GFR (MDRD) Amer 76 mL/min >60 [facility] Comment on above: GFR Calc Estimated GFR (MDRD) Non-Af Amer 63 mL/min >60 [facility] Comment on above: Non- GFR Calc VLDL Cholesterol 22 mg/dL 5-40 [facility] RBC Auto (Bld) [#/Vol]Ordere d By: Thi Rainey on 12-01-2023 RBC (Bld) [#/Vol] 4.93 10*6/uL 4.2-5.4 [facility] Serum or plasma calcium ivan urement (mass/volume)Ordered By: Thi Rainey on 12-01-2023 Calcium [Mass/Vol] 9.2 mg/dL 8.5-10.1 [facility] Serum or plasma creatinine m easurement (mass/volume)Ordered By: Thi Rainey on 12-01-2023 Creatinine [Mass/Vol] 0.93 mg/dL 0.55-1.02 [facility] Comment on above: The validity of the calculated GFR & GFRAA in patients over 70 years has not been determined. Clinical correlation is essential. Serum or plasma urea nitroge n measurement (mass/volume)Ordered By: Thi Rainey on 12-01-2023 Urea nitrogen [Mass/Vol] 12 mg/dL 7-18 [facility] Thin prep Papanicolaou smear with manual screeningOrdered By: Thi Rainey on 12-01-2023 Thin prep Papanicolaou smear with manual screening 3.6 g/dL 3.2-5.0 [facility] Thin prep Papanicolaou smear with manual screening 19 U/L 15-37 [facility] Thin prep Papanicolaou smear with manual screening 5 5-15 [facility] Absolute lymphocyte countOrd ered By: Dr. Rainey on 11-01-2022 Lymphocytes Auto (Unsp spec) [#/Vol] 2.15 10*3/uL 0.83-4.51 [facility] Basophil percentageOrdered B y: Dr. Rainey on 11-01-2022 Basophils/100 WBC (Bld) 0.4 % 0-1 [facility] Bilirubin [Mass/Vol] 0.20 mg/dL 0.20-1.00 [facility] Comment on above: For patients on eltr ombopag therapy, use of Dimension [place] TBIL is not recommended. Chloride [Moles/Vol] 107 mmol/L 98-107 [facility] Cholesterol [Mass/Vol] 241 mg/dL <200 [facility] Comment on above: <200 mg/dL Desirable 200-240 mg/dL Borderline >240 mg/dL High Risk Eosinophils/100 WBC (Bld) 2.7 % 0-5 [facility] Glucose [Mass/Vol] 94 mg/dL 74-106 [facility] Neutrophils (Bld) [#/Vol] 3.9 10*3/uL 2.0-7.7 [facility] Neutrophils/100 WBC (Bld) 57.5 % 47-70 [facility] Potassium [Moles/Vol] 4.3 mmol/L 3.5-5.1 [facility] Protein [Mass/Vol] 7.5 g/dL 6.4-8.2 [facility] Sodium [Moles/Vol] 139 mmol/L 136-145 [facility] Triglyceride [Mass/Vol] 206 mg/dL <199 [facility] Comment on above: The drugs N-Acetylcy steine and Metamizole may falsely depress this assay.Serum Triglycerides Reference Interval Normal <150 mg/dL Borderline high 150 - 199 mg/dL High 200 - 499 mg/dL Very High > or = 500 mg/dL WBC (Bld) [#/Vol] 6.8 10*3/uL 4.4-11.0 [facility] Blood erythrocytes count (nu mber/volume)Ordered By: Dr. Rainey on 11-01-2022 RBC (Bld) [#/Vol] 4.72 10*6/uL 4.2-5.4 [facility] Blood hemoglobin measurement (mass/volume)Ordered By: Dr. Rainey on 11-01-2022 Hemoglobin (Bld) [Mass/Vol] 14.1 g/dL 12.0-15.0 [facility] Blood lymphocytes/100 leukoc ytesOrdered By: Dr. Rainey on 11-01-2022 Lymphocytes/100 WBC (Bld) 31.7 % 19-41 [facility] Blood monocytes/100 leukocyt esOrdered By: Dr. Rainey on 11-01-2022 Monocytes/100 WBC (Bld) 7.4 % 0-10 [facility] Blood platelet mean volumeOr dered By: Dr. Rainey on 11-01-2022 Platelet mean volume (Bld) [Entitic vol] 9.1 fL 6.2-12.0 [facility] Determination of erythrocyte mean corpuscular volume (MCV)Ordered By: Dr. Rainey on 11-01-2022 MCV (RBC) [Entitic vol] 91.5 fL 81-99 [facility] Hematocrit Auto (Bld) [Volum e fraction]Ordered By: Dr. Rainey on 11-01-2022 Hematocrit (Bld) [Volume fraction] 43.2 % 37-47 [facility] Laboratory - Chemistry and C hemistry - challengeOrdered By: Dr. Rainey on 11-01-2022 ALP [Catalytic activity/Vol] 79 U/L 45-117 [facility] ALT [Catalytic activity/Vol] 22 U/L 13-56 [facility] CO2 [Moles/Vol] 28.0 mmol/L 21.0-32.0 [facility] Globulin (S) [Mass/Vol] 3.8 g/dL 2.2-4.2 [facility] Urea nitrogen/Creatinine [Mass ratio] 17.5 mg/mg 10-20 [facility] - Hematology and Cell countsOrdered By: Dr. Rainey on 11-01-2022 Erythrocyte distribution width (RBC) [Entitic vol] 48.8 fL 35.1-43.9 [facility] Erythrocyte distribution width (RBC) [Ratio] 14.4 % 11.6-14.6 [facility] Immature granulocytes/100 WBC (Bld) 0.300 % 0.0-0.9 [facility] Comment on above: IG% - Immature Granu locytes (promyelocytes, myelocytes and metamyelocytes) > 1% indicates that a LEFT SHIFT is Present. MCH (RBC) [Entitic mass] 29.9 pg 27.0-32.0 [facility] Nucleated RBC/100 WBC (Bld) [Ratio] 0 % 0-5 [facility] MCHC Auto (RBC) [Mass/Vol]Or dered By: Dr. Rainey on 11-01-2022 MCHC (RBC) [Mass/Vol] 32.6 g/dL 32-36 [facility] No Panel InformationOrdered By: Dr. Rainey on 11-01-2022 Estimated GFR (MDRD) Amer 84 mL/min >60 [facility] Comment on above: GFR Calc Estimated GFR (MDRD) Non-Af Amer 69 mL/min >60 [facility] Comment on above: Non- GFR Calc Platelets bldOrdered By: Dr. Rainey on 11-01-2022 Platelets (Bld) [#/Vol] 276 10*3/uL 150-450 [facility] Serum or plasma albumin ivan urement (mass/volume)Ordered By: Dr. Rainey on 11-01-2022 Albumin [Mass/Vol] 3.7 g/dL 3.2-5.0 [facility] Serum or plasma albumin/glob ulin mass ratioOrdered By: Dr. Rainey on 11-01-2022 Albumin/Globulin [Mass ratio] 1.0 {ratio} 0.9-2.4 [facility] Serum or plasma calcium ivan urement (mass/volume)Ordered By: Dr. Rainey on 11-01-2022 Calcium [Mass/Vol] 9.9 mg/dL 8.5-10.1 [facility] Serum or plasma cholesterol in HDL measurement (mass/volume)Ordered By: Dr. Rainey on 11-01-2022 Cholesterol in HDL [Mass/Vol] 51 mg/dL >40 [facility] Comment on above: The drugs N-Acetylcy steine and Metamizole may falsely depress this assay. Reference Range HDL <40 mg/dL Low HDL Cholesterol HDL >or= 60 mg/dL High HDL Cholesterol Serum or plasma cholesterol in VLDL measurement (mass/volume)Ordered By: Dr. Rainey on 11-01-2022 Cholesterol in VLDL [Mass/Vol] 41 mg/dL 5-40 [facility] Serum or plasma creatinine m easurement (mass/volume)Ordered By: Dr. Rainey on 11-01-2022 Creatinine [Mass/Vol] 0.86 mg/dL 0.55-1.02 [facility] Comment on above: The validity of the calculated GFR & GFRAA in patients over 70 years has not been determined. Clinical correlation is essential. Serum or plasma low density lipoprotein (LDL) cholesterol measurement (mass/volume)Ordered By: Dr. Rainey on 11-01-2022 Cholesterol in LDL [Mass/Vol] 149 mg/dL 0-130 [facility] Serum or plasma urea nitroge n measurement (mass/volume)Ordered By: Dr. Rainey on 11-01-2022 Urea nitrogen [Mass/Vol] 15 mg/dL 7-18 [facility] Thin prep Papanicolaou smear with manual screeningOrdered By: Dr. Rainey on 11-01-2022 Thin prep Papanicolaou smear with manual screening 19 U/L 15-37 [facility] Thin prep Papanicolaou smear with manual screening 4 5-15 [facility] CNPNon 08-04-2021 CNPN Telephone (RIQ) ---- GERRY WALL ([id number]) 1950 F Date Time Provider Department 08/04/21 DREA ALVARADO ([facility]) RIQ During your visit today, we recorded the following information about you: Drea Alvarado [facility] 08/04/2021 11:28 AM Signed Message request from 08/04/2021 Kaitlin Mcduffie/Yuriy Team. We discharged this patient from our pharmacy back in May due to patient abandonment. Patient has not refilled Ofev since January of last year. Please send over new prescription for patient if they are still on therapy in order for us to provide a refill for patient. She has contacted us and advised had 6 months? worth of medication on hand. Patient is aware we are waiting on a response from your office in order for us to process her request for refill. Allergies As of Date: 08/04/2021 (No Known Allergies) Date Reviewed: 10/11/2012 Reviewed by: Helene M Hoa Managed Care Coordinator - Fully Assessed Reason for Visit: Refill Request [94] Prescriptions as of 08/04/2021 - Multivitamin capsule Take 1 capsule by mouth once daily. - GLUCOSAM AND CHONDROIT-MV AND MIN3 (GLUCOSAMINE ZEAKGXIELDUX-RB-RNY 3 ORAL) Take by mouth. Problem List As Of Date 08/04/2021 Noted Resolved Routine gynecological examination [Z01.419] 05/27/2010 08/11/2012 Class: Chronic Chronic foot pain [M79.673, G89.29] 05/27/2010 Osteoarthritis [M19.90] 08/11/2012 Hypercholesteremia [E78.00] 10/28/2012 Encounter Status:Closed by DREA ADAM on 08/04/21 Normal [facility] Vital Signs Date Time Vital Sign Value Performing Clinician Oscar cotto 11-19-2024 13:16-0400 Body height 162.[address] Thi Rainey MD Work Phone: [facility] 11-19-2024 13:16-0400 Body mass index (BMI) [Ratio] 23.5 kg/m2 Dr. Thi Rainey MD Work Phone: [facility] 11-19-2024 13:16-0400 Body temperature 96.8 [degF] Dr. Thi Rainey MD Work Phone: [facility] 11-19-2024 13:16-0400 Body weight 62.[address] Thi Rainey MD Work Phone: [facility] 11-19-2024 13:16-0400 Diastolic blood pressure 68 mm[Hg] Dr. Thi Rainey MD Work Phone: [facility] 11-19-2024 13:16-0400 Heart rate 82 /min Dr. Thi Rainey MD Work Phone: [facility] 11-19-2024 13:16-0400 Respiratory rate 18 /min Dr. Thi Rainey MD Work Phone: [facility] 11-19-2024 13:16-0400 SaO2% (BldA) [Mass fraction] 97 % Dr. Thi Rainey MD Work Phone: [facility] 11-19-2024 13:16-0400 Systolic blood pressure 124 mm[Hg] Dr. Thi Rainey MD Work Phone: [facility] 12-08-2023 08:54-0400 Body temperature 97.8 [degF] Dr. Thi Rainey Work Phone: [facility] 12-08-2023 08:54-0400 Diastolic blood pressure 68 mm[Hg] Dr. Thi Rainey Work Phone: [facility] 12-08-2023 08:54-0400 Heart rate 78 /min Dr. Thi Rainey Work Phone: [facility] 12-08-2023 08:54-0400 Respiratory rate 12 /min Dr. Thi Rainey Work Phone: [facility] 12-08-2023 08:54-0400 SaO2% (BldA) [Mass fraction] 100 % Dr. Thi Rainey Work Phone: [facility] 12-08-2023 08:54-0400 Systolic blood pressure 120 mm[Hg] Dr. Thi Rainey Work Phone: [facility] 11-21-2023 13:05-0400 Body height 162.[address] Thi Rainey Work Phone: [facility] 11-21-2023 13:05-0400 Body mass index (BMI) [Ratio] 23.3 kg/m2 Dr. Thi Rainey Work Phone: [facility] 11-21-2023 13:05-0400 Body temperature 98.9 [degF] Dr. Thi Rainey Work Phone: [facility] 11-21-2023 13:05-0400 Body weight 61.[address] Thi Rainey Work Phone: [facility] 11-21-2023 13:05-0400 Diastolic blood pressure 72 mm[Hg] Dr. Thi Rainey Work Phone: [facility] 11-21-2023 13:05-0400 Heart rate 72 /min Dr. Thi Rainey Work Phone: [facility] 11-21-2023 13:05-0400 Respiratory rate 14 /min Dr. Thi Rainey Work Phone: [facility] 11-21-2023 13:05-0400 SaO2% (BldA) [Mass fraction] 97 % Dr. Thi Rainey Work Phone: [facility] 11-21-2023 13:05-0400 Systolic blood pressure 124 mm[Hg] Dr. Thi Rainey Work Phone: [facility] 02-03-2023 16:02-0400 Body height 162.[address] Thi Rainey Work Phone: [facility] 02-03-2023 16:02-0400 Body mass index (BMI) [Ratio] 23.1 kg/m2 Dr. Thi Rainey Work Phone: [facility] 02-03-2023 16:02-0400 Body temperature 98.1 [degF] Dr. Thi Rainey Work Phone: [facility] 02-03-2023 16:02-0400 Body weight 61.[address] Thi Rainey Work Phone: [facility] 02-03-2023 16:02-0400 Diastolic blood pressure 82 mm[Hg] Dr. Thi Rainey Work Phone: [facility] 02-03-2023 16:02-0400 Heart rate 78 /min Dr. Thi Rainey Work Phone: [facility] 02-03-2023 16:02-0400 Respiratory rate 18 /min Dr. Thi Rainey Work Phone: [facility] 02-03-2023 16:02-0400 SaO2% (BldA) [Mass fraction] 98 % Dr. Thi Rainey Work Phone: [facility] 02-03-2023 16:02-0400 Systolic blood pressure 136 mm[Hg] Dr. Thi Rainey Work Phone: [facility] 11-01-2022 14:05-0400 Body height 162.[address] Thi Rainey Work Phone: [facility] 11-01-2022 14:05-0400 Body mass index (BMI) [Ratio] 23.3 kg/m2 Dr. Thi Rainey Work Phone: [facility] 11-01-2022 14:05-0400 Body temperature 97.9 [degF] Dr. Thi Rainey Work Phone: [facility] 11-01-2022 14:05-0400 Body weight 61.[address] Thi Rainey Work Phone: [facility] 11-01-2022 14:05-0400 Diastolic blood pressure 90 mm[Hg] Dr. Thi Rainey Work Phone: [facility] 11-01-2022 14:05-0400 Heart rate 60 /min Dr. Thi Rainey Work Phone: [facility] 11-01-2022 14:05-0400 Respiratory rate 16 /min Dr. Thi Rainey Work Phone: [facility] 11-01-2022 14:05-0400 SaO2% (BldA) [Mass fraction] 98 % Dr. Thi Rainey Work Phone: [facility] 11-01-2022 14:05-0400 Systolic blood pressure 142 mm[Hg] Dr. Thi Rainey Work Phone: [facility] Encounters Encounter Date Encounter Type Care Provider Facility Start: 03-21-2025 ambulatory Trevor Abbott Facility :[facility] Start: 02-07-2025 ambulatory Chapocarrollflavio Rainey Facili ty:[facility] Start: 11-19-2024 End: 11-19-[address] Thi Rainey MD -[facility] Work Phone: Start: 11-19-2024 End: 11-19-[address] Thi Rainey MD [facility] Start: 11-19-2024 End: 11-19-[address] Thi Rainey MD Work Phone: [facility] Work Phone: Start: 11-19-2024 End: 11-19-2024 ambulatory Chapocarrollflavio Maldonadoe Facility:[facility] Start: 05-23-2024 End: 05-23-2024 [facility] [place] Start: 02-07-2024 End: 02-07-2024 ambulatory Eftruecarrollflavio Schofielde Facility:[facility] Start: 12-08-2023 End: 12-08-[address] Thi Rainey Work Phone: [facility] Work Phone: Start: 12-01-2023 End: 12-01-[address] Thi Rainey Work Phone: [facility] Work Phone: Start: 12-01-2023 End: 12-01-[address] Thi Rainey Work Phone: [facility] Work Phone: Start: 11-21-2023 End: 11-21-2023 Encounter for general adult medical examination without abnormal findings Dr. Thi Rainey Work Phone: [facility] Start: 11-21-2023 End: 11-21-[address] Thi Rainey Work Phone: [facility] Work Phone: Start: 02-03-2023 End: 02-03-[address] Thi Rainey Work Phone: [facility] Work Phone: Start: 02-02-2023 End: 02-02-[address] Thi Rainey Work Phone: [facility] Work Phone: Start: 02-02-2023 End: 02-02-[address] Thi Rainey Work Phone: [facility] Work Phone: Start: 11-01-[address] Thi Rainey Work Phone: [facility] Start: 11-01-2022 End: 11-01-[address] Thi Rainey Work Phone: [facility] Work Phone: Start: 11-01-2022 End: 11-01-2022 Encounter for general adult medical examination without abnormal findings Dr. Thi Rainey Work Phone: [facility] Start: 11-01-2022 End: 11-01-[address] Thi Rainey Work Phone: [facility] Procedures Date Procedure Procedure Detail Performing Clinician Start: 02-02-2023 Screening mammography Yamila Rainey Work Phone: Plan of Treatment Date Care Activity Detail Author Start: 11-19-2024 Patient referral [facility] Work Phone: Start: 11-21-2023 Patient referral [facility] Work Phone: DXA Bone [Mass/Area] Bone density [facility] Lipid 1996 panel - S christiano or Plasma [facility] Breast - bilateral Screening [facility] Breast - bilateral Screening [facility] Breast - bilateral Screening [facility] Patient referral [facility] Work Phone: Immunizations Immunization Date Immunization Notes Care Provider Fa cility 04-17-2024 Covid (Spikevax) Dr. Charlie Rainey MD Work Phone: [facility] 04-17-2024 Influenza High-Dose Quadrivalent Dr. Thi Rainey MD Work Phone: [facility] 04-17-2024 tetanus toxoid, redu eduardo diphtheria toxoid, and acellular pertussis vaccine, adsorbed Dr. Thi Rainey MD Work Phone: [facility] 05-19-2023 Covid (Spikevax) Dr. Charlie Rainey Work Phone: [facility] 05-19-2023 RSV Adult Recombinan t (Arexvy) Dr. Thi Rainey Work Phone: [facility] 05-03-2023 influenza, injectabl e, quadrivalent, preservative free Dr. Thi Rainey Work Phone: [facility] 11-01-2022 pneumococcal polysaccharide vaccine, [address] Thi Rainey Work Phone: [facility] 04-02-2022 Covid (Pfizer) Dr. Thi Rainey MD Work Phone: [facility] 11-22-[address] Thi Rainey MD Work Phone: [facility] 04-22-[address] Thi Rainey MD Work Phone: [facility] 10-29-2020 Covid (Moderna) Dr. Krissy Rainey MD Work Phone: [facility] 10-01-2020 Covid (Moderna) Dr. Krissy Rainey MD Work Phone: [facility] 05-03-2020 influenza, injectabl e, quadrivalent, preservative free Dr. Thi Rainey Work Phone: [facility] 05-03-2020 influenza, seasonal, injectable Dr. Thi Rainey Work Phone: [facility] 06-30-2018 pneumococcal conjuga te vaccine, [address] Thi Rainey Work Phone: [facility] Payers Date Payer Category Payer Self-pay [id number] 2023 Unknown [id number] Medicare MEDICARE A ONLY [id number] Unknown MED MUTUAL TPA [id number] Unknown [id number] 2.16.8 [id number] Unknown [id number] 2.16.8 [id number] Unknown [id number] 2.16.8 [id number] Unknown [id number] 2.16.8 [id number] Unknown [id number] 2.16.8 [id number] Unknown [id number] 2.16.8 [id number] Social History Date Type Detail Facility Start: 11-01-2022 End: 05-26-2023 Tobacco smoking status NHIS Unknown if ever smoked [facility] Start: 05-28-2020 Non-smoker [facility] Start: 1950 Sex Assigned At Female [facility] Start: 05-26-2023 Tobacco smoking stat us IDIS Never smoked tobacco (finding) [facility] Start: 11-23-2024 Sex Female (finding) [facility] Medical Equipment Procedure Code Equipment Code Equipment Origin al Text Equipment Identifier Dates 127 DEGREE NECK ANGLE HIP STEM FDA Start: 06-11-2020 6.5MM LOW PROFIL E HEX SCREW FDA Start: 06-11-2020 6.5MM LOW PROFIL E HEX SCREW FDA Start: 06-11-2020 CLUSTERHOLE ACETABULAR SHELL FDA Start: 06-11-2020 LFIT V40 FEMORAL HEAD FDA Sta rt: 06-11-2020 MDM INSERT FDA Start: 06-11-2020 MDM LINER FDA Start: 06-11-2020 127 DEGREE NECK ANGLE HIP STEM FDA Start: 06-11-2020 6.5MM LOW PROFIL E HEX SCREW FDA Start: 06-11-2020 6.5MM LOW PROFIL E HEX SCREW FDA Start: 06-11-2020 CLUSTERHOLE ACETABULAR SHELL FDA Start: 06-11-2020 LFIT V40 FEMORAL HEAD FDA Sta rt: 06-11-2020 MDM INSERT FDA Start: 06-11-2020 MDM LINER FDA Start: 06-11-2020 127 DEGREE NECK ANGLE HIP STEM FDA Start: 06-11-2020 6.5MM LOW PROFIL E HEX SCREW FDA Start: 06-11-2020 6.5MM LOW PROFIL E HEX SCREW FDA Start: 06-11-2020 CLUSTERHOLE ACETABULAR SHELL FDA Start: 06-11-2020 LFIT V40 FEMORAL HEAD FDA Sta rt: 06-11-2020 MDM INSERT FDA Start: 06-11-2020 MDM LINER FDA Start: 06-11-2020 127 DEGREE NECK ANGLE HIP STEM FDA Start: 06-11-2020 6.5MM LOW PROFIL E HEX SCREW FDA Start: 06-11-2020 6.5MM LOW PROFIL E HEX SCREW FDA Start: 06-11-2020 CLUSTERHOLE ACETABULAR SHELL FDA Start: 06-11-2020 LFIT V40 FEMORAL HEAD FDA Sta rt: 06-11-2020 MDM INSERT FDA Start: 06-11-2020 MDM LINER FDA Start: 06-11-2020 Evaluation note 11-19-2024 Note Date & Type Note Facility 11-19-2024 Evaluation note Diagnosis Onset Date Resolution Health care maintenance acute A 2024 1:05pm GERD (gastroesophageal reflux disease) chronic November 19, 2024 1:05pm Hyperlipidemia chronic October 1:05pm Hypertension chronic November 19, 2024 1:05pm Osteopenia chronic November 19 1:05pm [facility] Work Phone: Evaluation note Note Date & Type Note Facility Evaluation note Diagnosis Onset Date Health care maintenance acut e Hyperlipidemia chronic Hypertension chronic Osteopenia chronic [facility] Work Phone: Evaluation note Note Date & Type Note Facility Evaluation note Diagnosis Onset Date Health care maintenance acut e Hyperlipidemia chronic Hypertension chronic Osteopenia chronic Hypertension chronic [facility] Work Phone: Evaluation note Note Date & Type Note Facility Evaluation note Diagnosis Onset Date Health care maintenance acut e Hyperlipidemia chronic Hypertension chronic Osteopenia chronic Bee sting reaction acute [facility] Work Phone: Summary Purpose Family History No Family History Records Found Relationship Condition Age at Onset Recorded Date/T ameena mother Malignant neoplasm of breast Unknown Arthritis Unknown father Rheumatic fever with cardiac involvement Unknown Advance Directives No Advanced Directives Records Found Advance Directive Response Recorded Date/ Time Living Will Yes June 11 1:26pm Power of Stylist Apprentice Yes June 11, 2020 1:26pm Advance Directive Response Recorded Date/ Time Living Will Yes June 11 1:26pm Do you have a Healthcare Power of Stylist Apprentice? Yes June 11, 2020 1:26pm Chief Complaint and Reason for Visit Chief Complaint WELLNESS Reason for Visit Health care maintena nce Hyperlipidemia Hypertension Osteopenia Chief Complaint WELLNESS SCREENING 3 M FU Reason for Visit Health care maintena nce Hyperlipidemia Hypertension Osteopenia Hypertension Chief Complaint 6 M FU INT LABS EXCESSIVE SWELLING FROM BEE STING Reason for Visit Health care maintena nce Hyperlipidemia Hypertension Osteopenia Bee sting reaction Chief Complaint Admit Date 6 m fu November 19, 2024 1:0 5pm Reason for Visit Admit Date Health care maintenance November 19, 2024 1:05pm GERD (gastroesophageal reflux disease) A 2024 1:05pm Hyperlipidemia November 19, 2024 1:0 5pm Hypertension November 19, 2024 1:0 5pm Osteopenia November 19, 2024 1:0 5pm Additional Source Comments INFORMATION SOURCE (unrecogn ized section and content) DATE CREATED AUTHOR 10/22/2021 [facility] DATE CREATED AUTHOR AUTHOR'S TAMMYSANDY ADRI 01/28/2025 [facility] Care Teams (unrecognized sec tion and content) Team Status: Active Member Role Status Dates Dr. Thi Rainey MD Family Provider Active Dr. Thi Rainey MD Primary Care Provider Active Team Status: Inactive Member Role Status Dates Dr. Thi Rainey MD Primary Care P olga, Attending Provider, Referring Provider Active Team Status: Inactive Member Role Status Dates Dr. Thi Rainey MD Primary Care Provider, Refer ring Provider Active Aaron PLUMMER PA Attending Provider Active Team Status: Inactive Member Role Status Dates Dr. Thi Rainey MD Primary Care Provider Active Start: November 19, 2024 End: November 19, 2024 Dr. Thi Rainey MD Attending Provider Active Start: November 19, 2024 End: November 19, 2024 Dr. Thi Rainey MD Referring Provider Active Start: November 19, 2024 End: November 19, 2024 Goals (unrecognized section and content) Goals may be documented in a n alternate sectionGoals may be documented in an alternate sectionGoals may be documented in an alternate sectionGoals may be documented in an alternate section FOR RECORDS PERTAINING TO PATIENTS WHO ARE OR HAVE BEEN ENROLLED IN A CHEMICAL DEPENDENCY/SUBSTANCEABUSE PROGRAM, SOME INFORMATION MAY BE OMITTED. This clinical summary was aggregated from multiple sources. Caution should be exercised in using it in the provision of clinical care. This summary normalizes information from multiple sources, and as a consequence, information in this document may materially change the coding, format and clinical context of patient data. In addition, data may be omitted in some cases. CLINICAL DECISIONS SHOULD BE BASED ON THE PRIMARY CLINICAL RECORDS. [employer] provides no warranty or guarantee of the accuracy or completeness of information in this document.
== END | disposition home or self-care (01) ==
LOC: OPBI 08:42
PROVIDERS: PCP Internal Medicine; Referring Provider Internal Medicine; Visit Provider Internal Medicine
DX: Z12.31 Encounter for screening mammogram for malignant neoplasm of breast (principal); Z80.3 Family history of malignant neoplasm of breast
CPT/HCPCS: 77063; 77067

== ENCOUNTER 2025-04-10 13:28 | Day surgery (SDC) | payer MEDICARE, SELFPAY ==
[2025-04-10] VITALS (9 sets, daily range): BP systolic 94–146; BP diastolic 48–67; PULSE 52–68; RESP 16–18; TEMP 36.1–37; O2SAT 94–100; BMI 24.2
--- NOTE | 2025-04-10 13:39 | PCM.HP.STD ---
HPI - General General Date of Admission: 04/10/25 Date of Service: 04/10/25 Chief Complaint: Screening colonoscopy HPI Narrative GERRY WALL, is a 74 F who presents she comes in for screening colonoscopy. She had a colonoscopy 10 years ago and that was normal. She not having any abdominal pain cramping, chest pain or shortness of breath. Overall she is in very good health. [facility] Medical History Alcohol use Pulmonary embolism Back pain History of hiatal hernia Non-smoker Colon cancer screening GERD (gastroesophageal reflux disease) Health care maintenance Hypertension Knee MCL sprain Pneumonia Cataracts, bilateral Chronic UTI History Child Births Arthritis Home Medications ?Medication ?Instructions ?Recorded ?Last Taken ?Type calcium 600 mg (as 1 cap PO DAILY 11/01/22 Unknown History carbonate)-vitamin D3 12.5 mcg (500 unit) capsule (Calcium with Vit D3) [id number] 8 mg-folic 400 1 tab PO DAILY 11/01/22 04/05/25 History mcg-K 50 mcg-lutein 300 mcg tablet (Centrum Silver Women) vit C 250 mg-vit E 90 mg-zinc 40 1 tab PO DAILY 11/19/24 Unknown History mg-copper 1 [id number]-rxqixr capsule (PreserVision AREDS-2) Allergy/AdvReac Type Severity Reaction Status Date / Time No Known Allergies Allergy Verified 11/19/24 13:17 Family History Mother Breast cancer Arthritis Father , at age 43 Rheumatic fever with heart involvement Surgical History History of total right hip arthroplasty History of cataract surgery History of knee surgery History of tubal ligation History of foot surgery Social History Smoking Status: Never smoker alcohol intake: current alcohol intake frequency: a few times a week substance use type: does not use what type of physical activity do you participate in: walking ROS Constitutional Constitutional: Denies fatigue, fever(s), poor appetite, weight gain or weight loss Gastrointestinal Gastrointestinal: Denies belching, bloating, change in bowel habits, change in stool character, chewing difficulty, coffee ground emesis, constipation, cramping, diarrhea, dyspepsia, dysphagia, early satiety, excessive flatus, fecal incontinence, heartburn, hematemesis, hematochezia, hemorrhoids, loose stools, melena, nausea, odynophagia, rectal bleeding, tenesmus, vomiting or weight changes Physical Exam Const alert, oriented x3, no apparent distress and healthy appearing General Appearance: cooperative GI normal to inspection, nondistended, normoactive bowel sounds, soft to palpation, non-tender and non-distended Percussion: normal to percussion Rectal Exam: deferred Assessment & Plan Assessment/Plan (1) Colon cancer screening: PLAN: She was explained alternatives, risk and benefits include not withstanding bleeding, infection, sepsis, perforation, need for MedSurg and . She will have an ASA of 3.
[2025-04-10] MEDS: Lactated Ringers 1,000 ML 15 ML IV (13:45)
--- NOTE | 2025-04-10 14:23 | PRE.ANES_ITS ---
ASA Classification* ASA Classification ASA Classification: 1 Assessment & Plan Anesthesia* Anesthesia Assessment Anesthesia Assessment: Discussed sedation and/or anesthesia options, risks, benefits, and alternatives with patient/parents/legal guardian/POA. Questions invited. The patient/parents/legal guardian/POA seems to understand and agrees to proceed with anesthesia plan. Reviewed the physical assessment, medical history, allergy history and patient home medications list prior to surgery/procedure/anesthetic and documented any changes. Performed airway and anesthesia risk assessments. Anesthesia Type Anesthesia Type: MAC History Source History Obtained from:: Patient and Chart Anesthesia Focused Assessment* Temperature: 97 F Pulse Rate: 52 Blood Pressure: 146/55 Respiratory Rate: 16 Pulse Ox: 100 Oxygen Delivery Method: Room Air Airway Assessment Mouth opens: >3 cm Mallampati Score: II Teeth Condition: Intact Neck Range of motion (ROM): Full ROM Labs Anesthesia Preop lab: CBC WBC 7.3 K/mm3 (4.4-11.0) 11/19/24 13:11/19/24 RBC 4.63 M/mm3 (4.2-5.4) 11/19/24 13:11/19/24 Hgb 13.7 g/dL (12.0-15.0) 11/19/24 13:11/19/24 Hct 40.9 % (37-47) 11/19/24 13:11/19/24 Plt Count 302 K/mm3 (150-450) 11/19/24 13:11/19/24 CHEMISTRY Potassium 4.1 mmol/L (3.3-5.1) 11/19/24 13:11/19/24 Sodium 140 mmol/L (133-145) 11/19/24 13:11/19/24 Magnesium 2.2 mg/dL (1.6-2.6) 06/04/20 10:24 06/04/20 BUN 15 mg/dL (4-19) 11/19/24 13:11/19/24 Creatinine 0.77 mg/dL (0.70-1.20) 11/19/24 13:11/19/24 Glucose 108 mg/dL (70-99) H 11/19/24 13:11/19/24 POC Glucose 64 mg/dL (70-110) L 06/11/20 06:38 06/11/20 TSH 1.70 uIU/mL (0.358-3.74) 09/22/16 08:57 COAG Pre-Assessment Diagnosis/Proposed Procedure Planned Operative Procedure(s): COLONOSCOPY-OA Anesthesia History Anesthesia History - medical representative: Anesthesia History - medical representative Hx Hospitalization No 04/08/25 09:57 Any Problems With Anesthesia No 04/08/25 09:57 Cholinesterase deficiency No 04/08/25 09:57 You/Your Family Experience No 04/08/25 09:57 fever (hyperthermia) with Relationship Recent Exposure to Contagious No 04/10/25 13:54 Disease Does patient have nerve No 04/08/25 09:57 stimulator Patient instructed to have device shut off --Does patient have Pacemaker No 04/10/25 13:54 or ICD? When Was Last Pacemaker Check QUESTION #4 FULL TEXT: You/Your Family Experience fever (hyperthermia) with Anesthesia Last Oral Intake Last Oral intake: Last Oral Intake NPO since 10:30 04/10/25 13:54 Meds taken in AM with sips of No 04/10/25 13:54 water? Meds patient instructed to take am of surgery PONV PONV - medical representative: PONV - medical representative Female Yes 04/08/25 09:57 HX of Motion Sickness No 04/08/25 09:57 HX of N/V After Surgery No 04/08/25 09:57 Non-Smoker Yes 04/08/25 09:57 Duration of Surgery greater No 04/08/25 09:57 than 60 minutes Number of Risk Factors 2 04/08/25 09:57 PONV Score Moderate Risk 04/08/25 09:57 Height & Weight Height & Weight: Anesthesia: Height & Weight Height 5 ft 2 in 04/10/25 13:54 Weight: 60 kg 04/10/25 13:54 Body Mass Index (BMI) 24.2 04/10/25 13:54 Respiratory Assessment Respiratory Assessment - medical representative: Respiratory Tract Infection Hx - medical representative Hx Respiratory Tract Infection No 04/08/25 09:57 STOP Sleep Apnea STOP Sleep Apnea - medical representative: STOP Sleep Apnea - medical representative Hx Hypertension No 04/08/25 09:57 Hx Sleep Apnea No 04/08/25 09:57 CPAP BIPAP Do you snore loudly (louder No 04/08/25 09:57 than talking or can be heard Do you often feel tired/ No 04/08/25 09:57 fatigued/ sleepy during daytime? Has anyone observed you stop No 04/08/25 09:57 breathing during sleep? STOP Results Negative 04/08/25 09:57 QUESTION #5 FULL TEXT : Do you snore loudly (louder than talking or can be heard through closed doors)? Tobacco Use History Tobacco Use History - medical representative: Tobacco Use History - medical representative Tobacco Use Smoking Status Never smoker 04/08/25 09:57 Hx Tobacco Use No 04/08/25 09:57 Years Smoking Packs Smoked per Day Smoking Cessation Date was within the last 15 years Hx Smoking Cessation Date Hx Smoking Cessation Counseling Hematologic Medial History Hematologic Hx - medical representative: Hematologic Medical Hx - rn documentation Hx of Blood Transfusion No 04/08/25 09:57 Hx of Transfusion in last 3 No 04/08/25 09:57 Months Date of Last Transfusion (if within last 3 months) Ever experience any problems No 04/08/25 09:57 with transfusion(s)? Specify any problems Hx of Preganancy in last 3 No 04/08/25 09:57 Months Nurse Filling Out Transfusion VCHRISTIN 04/08/25 09:57 & Questions: Date: 04/08/25 04/08/25 09:57 Time: 09:58 04/08/25 09:57 Patient unable to answer at this time (ie. confused, unrespo /Reproduction History /Reproductive History - medical representative: /Reproductive Hx- medical representative Hx Now No 04/08/25 09:57 Gestational Age (in weeks): EDC: Hx Hx Para Hx Section SAB No 04/08/25 09:57 Active Medications Active Medications: Current Medications Generic Name Dose Route Start Last Admin Trade Name Freq PRN Reason Stop Dose Admin Lactated Ringer's 1,000 mls @ 15 mls/hr 04/10/25 13:45 04/10/25 13:45 IV 15 mls/hr .Q48H ANJUM Administration PFSH Medical History Alcohol use Pulmonary embolism Back pain History of hiatal hernia Non-smoker Colon cancer screening GERD (gastroesophageal reflux disease) Health care maintenance Hypertension Knee MCL sprain Pneumonia Cataracts, bilateral Chronic UTI History Child Births Arthritis Home Medications ?Medication ?Instructions ?Recorded ?Last Taken ?Type calcium 600 mg (as 1 cap PO DAILY 11/01/22 Unkn own History carbonate)-vitamin D3 12.5 mcg (500 unit) capsule (Calcium with Vit D3) jjazjzax-kezj-jjae 8 mg-folic 400 1 tab PO DAILY 11/0104/05/25 History mcg-K 50 mcg-lutein 300 mcg tablet (Centrum Silver Women) vit C 250 mg-vit E 90 mg-zinc 40 1 tab PO DAILY Unknown History mg-copper 1 [id number]-[id number] capsule (PreserVision AREDS-2) Allergy/AdvReac Type Severity Reaction Status Date / Time No Known Allergies Allergy Verified 04/10/25 13:52 Family History Mother Breast cancer Arthritis Father , at age 43 Rheumatic fever with heart involvement Surgical History History of total right hip arthroplasty History of cataract surgery History of knee surgery History of tubal ligation History of foot surgery Social History Smoking Status: Never smoker alcohol intake: current alcohol intake frequency: a few times a week substance use type: does not use what type of physical activity do you participate in: walking Review of Systems (Anesthesia) ROS Narrative System reviewed and no additional complaints, except as documented.
--- NOTE | 2025-04-10 14:30 | COLBX_PTH ---
PATIENT: GERRY WALL LOC: EN U#:[id number] AGE/SX: 74/F ROOM: RE04/10/[address]: Dr. Trevor Abbott DO : 1950 BED: DIS: 04/10/2025 SPEC #: [id number] RECD: 04/11/25 10:13 STATUS: [place] REQ #: [id number] PARISH: 04/10/25 14:[address]: Trevor Abbott DEPT: SURGICAL PATHOLOGY RECD BY: Tae Moya ENTERED: 04/11/25 14:27 SP TYPE: COLON BX LIZETTE DR: Dr. Thi Rainey MD Tissues: A - COLON BIOPSY Procedures: Surgery Specimen Level IV HEADER OPERATION: Colonoscopy with biopsy PRE-OP DIAGNOSIS: Colon cancer screening TISSUE SUBMITTED: A- Hepatic flexure biopsy MICROSCOPIC DIAGNOSIS A. Hepatic flexure, biopsy: * Benign colonic mucosa * Lymphoid aggregate MICROSCOPIC DESCRIPTION Slides are reviewed. GROSS DESCRIPTION A. Received in fixative is one container labeled with the patient's name and designated Hepatic flexure biopsy. The specimen consists of one irregular fragment of light gaming soft tissue that measures 0.9 cm. The specimen is totally submitted in one cassette. IA 04/11/2025 CPT:23744
--- NOTE | 2025-04-10 15:12 | OP.PROVAT_ITS ---
04/10/2025 Thi Rainey MD [address] [place] [address] [place] [address] Re : Colonoscopy procedure for Celina Pineda Dear Dr. Rainey This procedure was performed on Thursday, April 10, 2025. My impressions and recommendations are as follows: Impressions : - Diverticulosis in the recto-sigmoid colon, in the sigmoid colon and in the descending colon. - One 5 mm polyp at the hepatic flexure, removed with a jumbo cold forceps. Resected and retrieved. - The examination was otherwise normal on direct and retroflexion views. Recommendations : - Discharge patient to home. - Resume previous diet. - Continue present medications. - Await pathology results. - Repeat colonoscopy in 5 years for surveillance. My findings are described in the full procedure note, which is enclosed. If I can be of further assistance, please feel free to contact me at . Sincerely, Trevor Abbott, 04/10/2025 3:12:13 PM This report has been signed electronically.
--- NOTE | 2025-04-10 15:12 | OP.COLON_ITS ---
Patient Name: Celina Pineda Procedure Date: 04/10/2025 2:46 PM Date of : 1950 Age: 74 Procedure: Colonoscopy Indications: Screening for colorectal malignant neoplasm Providers: Trevor Abbott DO Referring MD: Thi Rainey MD Medicines: Monitored Anesthesia Care Patient Profile: This is a 74 year old female. Refer to note in patient chart for documentation of history and physical. Last Colonoscopy: more than 10 years ago. Complications: No immediate complications. Procedure: Pre-Anesthesia Assessment: - Prior to the procedure, a History and Physical was performed, and patient medications and allergies were reviewed. The patient is competent. The risks and benefits of the procedure and the sedation options and risks were discussed with the patient. All questions were answered and informed consent was obtained. Patient identification and proposed procedure were verified by the physician in the pre-procedure area. Mental Status Examination: alert and oriented. Airway Examination: normal oropharyngeal airway and neck mobility. Respiratory Examination: clear to auscultation. CV Examination: normal. Prophylactic Antibiotics: The patient does not require prophylactic antibiotics. Prior Anticoagulants: The patient has taken no anticoagulant or antiplatelet agents except for NSAID medication. ASA Grade Assessment: II - A patient with mild systemic disease. After reviewing the risks and benefits, the patient was deemed in satisfactory condition to undergo the procedure. The anesthesia plan was to use monitored anesthesia care (MAC). Immediately prior to administration of medications, the patient was re-assessed for adequacy to receive sedatives. The heart rate, respiratory rate, oxygen saturations, blood pressure, adequacy of pulmonary ventilation, and response to care were monitored throughout the procedure. The physical status of the patient was re-assessed after the procedure. After I obtained informed consent, the scope was passed under direct vision. Throughout the procedure, the patient's blood pressure, pulse, and oxygen saturations were monitored continuously. The pediatric colonoscope was introduced through the anus and advanced to the cecum, identified by the appendiceal orifice, ileocecal valve and palpation. The colonoscopy was performed without difficulty. The patient tolerated the procedure well. The quality of the bowel preparation was adequate. The ileocecal valve, appendiceal orifice, and rectum were photographed. Scope In: 2:53:49 PM Scope Withdrawal Time 0 hours 7 minutes 26 seconds Scope Out: 3:06:24 PM Total Procedure Duration Time 0 hours 12 minutes 35 seconds Findings: The perianal and digital rectal examinations were normal. Many small-mouthed diverticula were found in the recto-sigmoid colon, sigmoid colon and descending colon. A 5 mm polyp was found in the hepatic flexure. The polyp was sessile. The polyp was removed with a jumbo cold forceps. Resection and retrieval were complete. Verification of patient identification for the specimen was done. Estimated blood loss was minimal. The exam was otherwise without abnormality on direct and retroflexion views. Impression: - Diverticulosis in the recto-sigmoid colon, in the sigmoid colon and in the descending colon. - One 5 mm polyp at the hepatic flexure, removed with a jumbo cold forceps. Resected and retrieved. - The examination was otherwise normal on direct and retroflexion views. Recommendation: - Discharge patient to home. - Resume previous diet. - Continue present medications. - Await pathology results. - Repeat colonoscopy in 5 years for surveillance. Procedure Code(s): --- Professional --- 17814, Colonoscopy, flexible; with biopsy, single or multiple CPT copyright 2021 [employer]. All rights reserved. The codes documented in this report are preliminary and upon preflight inspector review may be revised to meet current compliance requirements. Trevor Abbott DO 04/10/2025 3:12:13 PM This report has been signed electronically. Number of Addenda: 0 Note Initiated On: 04/10/2025 2:46 PM
--- NOTE | 2025-04-10 15:16 | PCM.POST.ANE ---
Anesthesia: Postop Eval I Current Vital Signs Temperature: 97.6 F Pulse Rate: 65 Blood Pressure: 95/48 Respiratory Rate: 16 Pulse Ox: 96 Oxygen Delivery Method: Room Air Assessment Airway patent: Yes Spontaneous unlabored respirations: Yes Mental status: Asleep nausea: No Vomiting: No Anesthesia Complication: No Fluid Hydration Crystalloid volume administer (ml): 500 Total IV fluid infused: 500 Progress Note Anesthesia document: Postop Eval 1 completed: Yes
--- NOTE | 2025-04-10 15:42 | PCM.POSTANE2 ---
Anesthesia Postop Eval I Sum Postop Eval Completion status Anesthesia document: Postop Eval 1 completed: Yes Anesthesia Postop Eval I Summary Anesthesia Postop Eval I Summary: Anesthesia Postop Eval I: Assessment Summary Airway patent Yes 04/10/25 15:18 [email or web address] Spontaneous unlabored Yes 04/10/25 15:18 [email or web address] respirations Mental status Asleep 04/10/25 15:18 [email or web address] nausea No 04/10/25 15:18 [email or web address] Vomiting No 04/10/25 15:18 [email or web address] Anesthesia Postop Eval I: Fluid Summary Crystalloid volume administer 500 04/10/25 15:18 [email or web address] (ml) Colloids volume administered ( ml) Blood Product volume administered (ml) Total IV fluid infused 500 04/10/25 15:18 [email or web address] Anesthesia Postop Eval I: Summary Notes Anesthesia Complication No 04/10/25 15:18 [email or web address] Anesthesia Complication Comment: Post-operative progress note Anesthesia: Postop Eval II Evaluation Mental status: Awake and Calm Pain Level: 1 nausea: No Vomiting: No Complications Anesthesia Complication: No
== END 2025-04-10 15:59 | disposition home or self-care (01) ==
LOC: EN 13:29 → AC 13:32
PROVIDERS: PCP Internal Medicine; Referring Provider Internal Medicine; Visit Provider Internal Medicine Gastroenterology
PROC: 0DJD8ZZ Inspection of Lower Intestinal Tract, Via Natural or Artificial Opening Endoscopic (ICD-10-PCS; CPT 45378; principal; 2025-04-10 14:25)
DX: Z12.11 Encounter for screening for malignant neoplasm of colon (principal); K63.5 Polyp of colon; I10 Essential (primary) hypertension; K57.30 Diverticulosis of large intestine without perforation or abscess without bleeding; K21.9 Gastro-esophageal reflux disease without esophagitis
CPT/HCPCS: 45380; 88305; J2405